=== PATIENT | male | born 1985 | race Two or more races ===

== ENCOUNTER 2024-05-18 06:51 | Emergency (ER) | payer BC, MEDICAID, SELFPAY ==
[2024-05-18 06:51] VITALS: BMI 23.0
[2024-05-18 07:12] VITALS: BP 134/78; PULSE 88; RESP 18; TEMP 36.4; O2SAT 99; BMI 25.2
--- NOTE | 2024-05-18 07:37 | EDNOTE_ITS ---
ED Ear RME/HPI General Chief complaint: Ear Stated complaint: ear pain Time Seen by Provider: 05/18/24 06:51 Arrival date/time: 05/18/24 06:51 This is a 38-year-old male with complaints of foreign body in left ear. Patient states has been hurting for the past week. Patient denies fever chills. Patient states that he did not put anything in his ear and he has no idea how foreign body got in his ear. Patient denies any trauma. He reports surgery to his right ear in the past. Patient also has complaints of redness to right upper back. Patient states it has been there for a couple days now. Patient states has been draining fluid. Limitations: no limitations Related Data Home Medications ?Medication ?Instructions ?Recorded ?Confirmed levetiracetam 500 mg tablet 500 mg PO QID 07/27/20 04/08/21 (Keppra) Previous Rx's ?Medication ?Instructions ?Recorded acetaminophen 500 mg capsule 1,000 mg (2 x 500 mg) PO Q8HR PRN 04/08/21 pain #60 caps ibuprofen 800 mg tablet 800 mg PO TID PRN pain #30 tabs 04/08/21 fexofenadine 180 mg tablet 180 mg PO Q24H #30 tabs 04/07/22 (Nasreen Allergy) hydrocodone 5 mg-acetaminophen 325 1 tab PO BID PRN pain #10 tabs 12/30/22 mg tablet ibuprofen 600 mg tablet 600 mg PO Q6H #30 tabs 12/30/22 acetaminophen 300 mg-codeine 30 mg 2 tab PO TID PRN pain #20 tabs 03/22/24 tablet amoxicillin 875 mg-potassium 1 tab PO BID #10 tabs 03/22/24 clavulanate 125 mg tablet ibuprofen 800 mg tablet 800 mg PO Q8H PRN pain #30 tabs 03/22/24 amoxicillin 875 mg-potassium 1 tab PO BID 7 days #14 tabs 05/18/24 clavulanate 125 mg tablet doxycycline hyclate 100 mg tablet 100 mg PO BID 7 days #14 tabs 05/18/24 ibuprofen 800 mg tablet 800 mg PO Q6H PRN pain #14 tabs 05/18/24 [id number] 3.3 4 drp otic (ear) QID #10 mL 05/18/24 mg-3 mg-10 mg-0.5 mg/mL ear drops,susp (Cortisporin-TC) Allergies Allergy/AdvReac Type Severity Reaction Status Date / Time No Known Allergies Allergy Verified 05/18/24 06:54 Review of Systems Review of Systems Systems Reviewed: All systems reviewed, normal except as documented Past Medical History Past Medical History NEUROLOGIC: Positive Neurological Disorders, Seizures and Multiple Sclerosis CARDIAC: Negative Congestive Heart Failure RESPIRATORY: Negative Chronic Obstructive Pulmonary Disease (COPD) GENITOURINARY: Negative Renal Disease ENDOCRINE: Negative Diabetes Mellitus Type 1 or Diabetes Mellitus Type 2 Surgical History SURGICAL: Positive Ear Surgery and Abdominal Surgery Social History SMOKING STATUS: Never smoker SUBSTANCE USE: does not use ED Exam General Limitations: Present no limitations General appearance: Present alert and in no apparent distress Head Head exam: Present atraumatic Eye Eye exam: Present normal appearance, PERRL and EOMI ENT ENT exam: Present normal oropharynx, mucous membranes moist and other (left ear canal erythemic with drainage after black foreign body removed) Neck Neck exam: Present normal inspection, full ROM and trachea midline Chest Chest inspection: Present normal inspection and symmetric chest wall rise Respiratory Respiratory exam: Present normal lung sounds bilaterally Cardiovascular Cardiovascular exam: Present regular rate, normal rhythm and normal heart sounds Abdominal Exam Abdominal exam: Present soft and normal bowel sounds Extremities Exam Extremities exam: Present normal inspection and full ROM Back Exam Back exam: Present normal inspection and full ROM Neurological Exam Neurological exam: Present alert, oriented X3 and CN II-XII intact Psychiatric Psychiatric exam: Present normal affect and normal mood Skin Skin exam: Present warm, dry, intact and normal color Course Quality Measures none Orders Category Date Time Status Miscellaneous Nursing Order X1 Care 05/18/24 07:35 Completed Ibuprofen Tab [Motrin Tab] Med 05/18/24 07:35 Discontinued 800 mg PO X1 ONE Lidocaine 2% Viscous [Xylocaine 2% Viscous] Med 05/18/24 07:35 Discontinued 15 ml PO X1 ONE cefTRIAXone [Rocephin] 1,000 mg Med 05/18/24 07:36 Discontinued Lidocaine 1% 20 ml [Xylocaine 1% 20 ML] 2.1 ml IM X1 Vital Signs Vital signs: Vital Signs Temperature 97.6 F 05/18/24 07:12 Pulse Rate 88 05/18/24 07:12 Respiratory Rate 18 05/18/24 07:12 Blood Pressure 134/78 H 05/18/24 07:12 Pulse Oximetry (%) 99 05/18/24 07:12 Oxygen Delivery Method Room Air 05/18/24 07:12 Ear Patient data External records reviewed:: [facility] previous records Clinical information provided by:: patient Social determinants that could affect healthcare access:: none Patient has the following chronic illnesses:: none How is presenting disease/condition affected by chronic disease/condition?: no chronic disease Evaluation data The following diagnostics were reviewed and interpreted by me:: other (specify) (none ) Lab and/or radiology exams considered but not ordered:: none Interpretation Summary: none Medications / Prescriptions Medications or Prescriptions considered but not ordered:: none Medication administrations:: Medication Administration History Discontinued Medications Ceftriaxone Sodium 1,000 mg/ (Lidocaine HCl 2.1 ml) 0 mg IM X1 ONE Stop: 05/18/24 07:37 Last Admin: 05/18/24 08:17 Dose: 2.1 mg Documented By: ARF Ibuprofen (Ibuprofen Tab 400 Mg Tablet) 800 mg PO X1 ONE Stop: 05/18/24 07:36 Last Admin: 05/18/24 08:17 Dose: 800 mg Documented By: ARF Lidocaine HCl (Lidocaine Viscous 2% 15 Ml Udc) 15 ml PO X1 ONE Stop: 05/18/24 07:36 Last Admin: 05/18/24 08:17 Dose: 15 ml Documented By: ARF see mar Consultations Consultation(s) initiated? (list below): No Diagnosis Most likely diagnosis given after review of the tests above:: foreign body left ear removed Admission Indicated Admission indicated?: not indicated Admission Request Was there a request for admission?: No Disposition Plan Disposition Plan: Discharge Discharge Attestation Discharge Attestation: The patient and all family members were given an opportunity to ask questions and understood the discharge instructions. Discharge instructions specifically effects, indications for sooner follow up or return to the emergency department, and the expected course of current diagnosis. Patient condition: Stable Medical Decision Making MDM Narrative MDM Narrative: This is a 38-year-old male with complaints of foreign body in left ear. Patient states has been hurting for the past week. Patient denies fever chills. Patient states that he did not put anything in his ear and he has no idea how foreign body got in his ear. Patient denies any trauma. He reports surgery to his right ear in the past. Patient also has complaints of redness to right upper back. Patient states it has been there for a couple days now. Patient states has been draining fluid. After flushing ear with warm hydrogen peroxide and saline. I was able to reach foreign body and remove. It appears to be an ear phone piece. Pt told to keep ears clean and use ear drops. Discharge Plan Plan Patient Disposition: HOME (Self Care) Patient condition on transfer: Stable Prescriptions/Referrals Prescriptions/Med Rec: New ibuprofen 800 mg tablet 800 mg PO Q6H PRN (Reason: pain) Qty: 14 0RF doxycycline hyclate 100 mg tablet 100 mg PO BID 7 Days Qty: 14 0RF amoxicillin-pot clavulanate 875-125 mg tablet 1 tab PO BID 7 Days Qty: 14 0RF Cortisporin-TC 3.3-3-10-0.5 mg/mL drops,suspension 4 drp otic (ear) QID Qty: 10 0RF No Action levetiracetam [Keppra] 500 mg Tablet 500 mg PO QID ibuprofen 800 mg tablet 800 mg PO TID PRN (Reason: pain) Qty: 30 0RF acetaminophen 500 mg capsule 1,000 mg PO Q8HR PRN (Reason: pain) Qty: 60 0RF ibuprofen 600 mg tablet 600 mg PO Q6H Qty: 30 0RF hydrocodone-acetaminophen 5-325 mg tablet 1 tab PO BID MDD 10 PRN (Reason: pain) Qty: 10 0RF acetaminophen-codeine 300-30 mg tablet 2 tab PO TID MDD 6 PRN (Reason: pain) Qty: 20 0RF ibuprofen 800 mg tablet 800 mg PO Q8H PRN (Reason: pain) Qty: 30 0RF amoxicillin-pot clavulanate 875-125 mg tablet 1 tab PO BID Qty: 10 0RF fexofenadine [Nasreen Allergy] 180 mg tablet 180 mg PO Q24H Qty: 30 0RF Problem List Clinical Impression: Cellulitis, Abscess, Acute foreign body of left ear Patient/Caregiver Discharge Instructions Discharge Activity: activity as tolerated Education Materials: ED Abscess Antibiotic ..., ED Cellulitis, ED EAR CANAL Foreign Body Additional Instructions: Patient will need to follow-up with an ear nose and and throat doctor. please take antibiotics as prescribed. May use warm compresses to abscess to right upper back every 4 hours. Can take ibuprofen for pain. Come back to the emergency room if symptoms change or worsen. Keep scheduled appointment with primary provider. Print Language: Sammarinese Stand Alone Forms: Camilla Award Info., Patient Portal Info Letter PA/GEAR SHAVER SET UP OPERATOR Supervising Physician PA/GEAR SHAVER SET UP OPERATOR Supervising Physician: dashawn
[2024-05-18] MEDS: IBUPROFEN TAB 400 MG TABLET 800 MG PO (08:17)
[2024-05-18] MEDS: LIDOCAINE VISCOUS 2% 15 ML UDC PO (08:17)
[2024-05-18] MEDS: cefTRIAXone 1,000 MG, LIDOCAINE 1% 20 ML 2.1 ML IM (08:17)
== END 2024-05-18 09:02 | disposition home or self-care (01) ==
LOC: SERX 07:49
PROVIDERS: Emergency Provider Emergency Medicine; PCP Physician Assistant
DX: T16.2XXA Foreign body in left ear, initial encounter (principal); L02.212 Cutaneous abscess of back [any part, except buttock and flank]; L03.312 Cellulitis of back [any part except buttock and flank]; W44.9XXA Unspecified foreign body entering into or through a natural orifice, initial encounter
CPT/HCPCS: 96372; 99283; J0696; J3490; A9270

== ENCOUNTER → 2024-05-24 | Outpatient (CLI) | payer OTHER, MEDICAID, SELFPAY ==
--- NOTE | 2024-05-24 11:04 | XR_ITS ---
Examination: Bilateral hands, 6 views. Technique: AP, Oblique, Lateral each hand total 6 views Date and time of exam: May 24, 2024 1108 hours Comparison April 10, 2024 INDICATIONS: Pain and stiffness in the hand beginning March 2024 FINDINGS: Partial healing fractures left fourth and fifth digits proximal phalanges Stable and satisfactory alignment Old fracture base fifth metacarpal right hand No acute fractures No opaque foreign bodies IMPRESSION: Subacute partial healing fractures proximal phalanges left fourth and fifth digits with satisfactory alignment
== END | disposition home or self-care (01) ==
PROVIDERS: PCP Physician Assistant; Referring Provider Orthopaedic Surgery; Visit Provider Orthopaedic Surgery
DX: S62.615A Displaced fracture of proximal phalanx of left ring finger, initial encounter for closed fracture (principal); S62.617A Displaced fracture of proximal phalanx of left little finger, initial encounter for closed fracture; X58.XXXA Exposure to other specified factors, initial encounter
CPT/HCPCS: 73130

== ENCOUNTER 2024-07-11 13:58 | Inpatient (IN) | payer MEDICAID, SELFPAY ==
[2024-07-11] VITALS (12 sets, daily range): BP systolic 116–154; BP diastolic 72–99; PULSE 84–112; RESP 18–21; TEMP 37.1–38.7; O2SAT 90–100; BMI 25.1
--- NOTE | 2024-07-11 14:16 | XR_ITS ---
Examination: CT brain head without contrast. 2-D sagittal coronal reconstructions Date and time of exam:July 11, 2024 1600 hours INDICATIONS: Patient fell today with injury to the head, head pain CTDI: vol (mGy):55.9 DLP: (mGycm):1124 Technique: Multiple CT axial sections of the brain have been obtained, 5 mm slice thickness. Contrast has not been administered. 2-D sagittal, coronal reconstructions have been obtained Low dose protocols were performed. One or more of the following dose reduction techniques were used; automated exposure control, adjustment of the mA and/or KV according to patient size, use of iterative reconstruction technique. Findings: No significant ventricular enlargement. Intra-axial or extra-axial hemorrhage density is not seen. No mass effect or midline shift Basal cisterns are not remarkable. Fourth ventricle is midline. Cranial vault intact. Impression: Negative for acute hemorrhage, mass effect or midline shift
--- NOTE | 2024-07-11 14:18 | PC.NURSE ---
Pt. here from [employer], pt. was at work and stated he started to feel weird and walked to break room, pt. states then he woke up and didn't recognize anyone around him. Pt. has edema to right eyebrow and left cheek. Pt. states when he woke up the ambulance was there. Pt. states he had seizures when he was 14 and used to take Keppra. Pt. states he doesn't want to get fired.
--- NOTE | 2024-07-11 14:20 | XR_ITS ---
Examination: CT cervical spine without contrast 2-D sagittal reconstructions 2-D coronal reconstructions 3-D reconstructions. Exam date and time:July 11, 2024 1600 hours INDICATIONS: Patient fell today with injury to the neck, neck pain CTDI:vol (mGy) 13.6 DLP: (mGycm) 299 Technique: Multiple 2 mm axial sections of the cervical spine have been obtained. The coronal and sagittal reconstructions have been obtained. 3-D reconstructions have been obtained. Low dose protocols were performed. One or more of the following dose reduction techniques were used; automated exposure control, adjustment of the mA and/or KV according to patient size, use of iterative reconstruction technique. Findings: Axial sections demonstrate intact base of the skull. C1 exhibit satisfactory relationship to the odontoid. No acute cervical vertebral body fracture seen. Alignment posterior spinous processes satisfactory. Impression: No acute cervical fracture.
--- NOTE | 2024-07-11 14:20 | XR_ITS ---
Examination: CT maxillofacial, without intravenous contrast. 2-D sagittal reconstructions. 3-D reconstructions. Date and time of exam:July 11, 2024 1600 hours INDICATIONS: Patient fell today with injury to the face, facial pain CTDI: vol (mGy):17 DLP: (mGycm):301 Technique: Multiple axial images of maxillofacial region, 3.0 mm slice thickness. 2-D sagittal and coronal reconstructions. 3-D reconstructions. Low dose protocols were performed. One or more of the following dose reduction techniques were used; automated exposure control, adjustment of the mA and/or KV according to patient size, use of iterative reconstruction technique. Findings: Frontal bone frontal sinuses intact Orbital rims are intact No nasal bone fracture No depression zygomatic arches Pterygoid plates maxilla and the mandible intact IMPRESSION: No acute facial fracture.
--- NOTE | 2024-07-11 14:26 | PC.NURSE ---
Pt. states right now he feels lightheaded and dizzy.
--- NOTE | 2024-07-11 14:30 | PD.EDSYNC ---
ED Syncope RME/HPI General Chief Complaint: Syncope / Near Syncope Stated Complaint: POSSIBLE SEIZURE Time Seen by Provider: 07/11/24 14:11 Arrival date/time: 07/11/24 13:58 RME / HPI RME / HPI narrative: 38-year-old male patient with significant history of MS, was brought in by EMS for evaluation regarding witnessed tonic-clonic seizure. Patient told me that he was working and suddenly felt dizzy was helped by another coworker and was witnessed to have blank stares and was shaking. Patient fell forward. Sustained abrasions to the face. Denies any neck pain. Patient was seen by neurologist yesterday and will start MS medication tomorrow. Currently patient is alert and oriented x 2 Related Data Home Medications ?Medication ?Instructions ?Recorded ?Confirmed levetiracetam 500 mg tablet 500 mg PO QID 07/27/20 04/08/21 (Keppra) Previous Rx's ?Medication ?Instructions ?Recorded acetaminophen 500 mg capsule 1,000 mg (2 x 500 mg) PO Q8HR PRN 04/08/21 pain #60 caps ibuprofen 800 mg tablet 800 mg PO TID PRN pain #30 tabs 04/08/21 fexofenadine 180 mg tablet 180 mg PO Q24H #30 tabs 04/07/22 (Nasreen Allergy) hydrocodone 5 mg-acetaminophen 325 1 tab PO BID PRN pain #10 tabs 12/30/22 mg tablet ibuprofen 600 mg tablet 600 mg PO Q6H #30 tabs 12/30/22 acetaminophen 300 mg-codeine 30 mg 2 tab PO TID PRN pain #20 tabs 03/22/24 tablet amoxicillin 875 mg-potassium 1 tab PO BID #10 tabs 03/22/24 clavulanate 125 mg tablet ibuprofen 800 mg tablet 800 mg PO Q8H PRN pain #30 tabs 03/22/24 ibuprofen 800 mg tablet 800 mg PO Q6H PRN pain #14 tabs 05/18/24 [id number]-[id number] 3.3 4 drp otic (ear) QID #10 mL 05/18/24 mg-3 mg-10 mg-0.5 mg/mL ear drops,susp (Cortisporin-TC) Allergies Allergy/AdvReac Type Severity Reaction Status Date / Time No Known Allergies Allergy Verified 05/18/24 06:54 Review of Systems Review of Systems Narrative Review of Systems: Review of system reviewed and within normal limits except mentioned in HPI ED Exam Narrative Physical exam: VITAL SIGNS: Reviewed. GENERAL APPEARANCE: Alert and interactive, follows commands, no acute distress, HEAD AND FACE: Contusion noted on the forehead ENT: PERRL, pink conjunctivitis, eyelid no trauma, Mucous membrane moist. NECK: Supple, nontender, no nuchal rigidity. CHEST: No tenderness, no crepitus, no paradoxical movement, no retractions. LUNGS: Clear, well ventilated, symmetric, no rales, no wheezing, no ronchi, no stridor, good breath sounds bilaterally. HEART: Regular rate, regular rhythm, no murmur, no gallops. ABDOMEN: Soft, positive bowel sounds, nondistended, no guarding, nontender, no rebound, no masses, RECTAL: Deferred. GENITAL: Deferred. NEUROLOGICAL: Gross motor function intact sensory function intact, Appropriate for age. MUSCULOSKELETAL: low back nontender, full range of motion. EXTREMITIES: Nontender, full range of motion. SKIN: Color pink, dry, no rash, no lacerations, no abrasions, no contusions. LYMPHATICS: Deferred. Course Quality Measures none Orders Category Date Time Status COVID-19 Screening Questionnaire NOW Care 07/11/24 17:08 Active Decision to Admit X1 Care 07/11/24 17:08 Active Consult to Neurology / Tele-Neurology Stat Cons 07/11/24 17:[address] cervical spine wo con Stat Exams 07/11/24 14:[address] facial bones wo con Stat Exams 07/11/24 14:[address] head/brain wo con Stat Exams 07/11/24 14:16 Completed Alcohol, Blood Medical Stat Lab 07/11/24 14:59 Completed CBC [CBC] Stat Lab 07/11/24 14:59 Completed CMP [Comprehensive Metabolic Panel] Stat Lab 07/11/24 14:59 Completed Drug Screen,Urine Stat Lab 07/11/24 14:38 Completed Lactate (Lactic Acid) Stat Lab 07/11/24 14:59 Completed LORazepam [Ativan Inj] Med 07/11/24 16:58 Discontinued 2 mg .ROUTE .STK-MED ONE LORazepam [Ativan Inj] Med 07/11/24 17:02 Discontinued 2 mg IVP X1 ONE Sodium Chloride 0.9% 1000 ml [Ns] 1,000 ml Med 07/11/24 14:18 Discontinued IV 999 mls/hr levETIRAcetam INJ [Keppra Inj] Med 07/11/24 17:02 Discontinued 1,000 mg IVP X1 ONE Vital Signs Vital signs: Vital Signs Temperature 99.7 F 07/11/24 14:01 Pulse Rate 105 H 07/11/24 14:01 Respiratory Rate 18 07/11/24 14:01 Blood Pressure 154/99 H 07/11/24 14:01 Pulse Oximetry (%) 96 07/11/24 14:01 Syncope MDM Narrative MDM Narrative:: 38-year-old male patient with significant history of MS, was brought in by EMS for evaluation regarding witnessed tonic-clonic seizure. Patient told me that he was working and suddenly felt dizzy was helped by another coworker and was witnessed to have blank stares and was shaking. Patient fell forward. Sustained abrasions to the face. Denies any neck pain. Patient was seen by neurologist yesterday and will start MS medication tomorrow. Currently patient is alert and oriented x 2 After patient was initially evaluated, I spoke with Dr. Flowers, patient's urologist, discussed the case, told me to workup the patient and hold off on Keppra IV 5 PM, patient developed witnessed tonic-clonic seizure lasting for 1 to 2 minutes. Patient bit his tongue. And have incontinence of urine Patient was given Ativan IV and Keppra IV Spoke with Dr. Gunderson again and told me to admit the patient for further management. Spoke with hospitalist who admitted the patient. Patient data External records reviewed:: None Clinical information provided by:: patient Social determinants that could affect healthcare access:: none Patient has the following chronic illnesses:: History of seizure, history of MS How is presenting disease/condition affected by chronic disease/condition?: exacerbated by Evaluation data The following diagnostics were reviewed and interpreted by me:: lab results, radiology exam(s) and EKG tracing(s) Lab and/or radiology exams considered but not ordered:: None Interpretation Summary: EKG shows sinus rhythm, ventricular rate of 99 bpm, no ST segment elevation or depression noted. CT scan of the head came back unremarkable CT scan of the face came back unremarkable CT scan of the neck came back unremarkable. Laboratory couple came back normal. Medications / Prescriptions Medications or Prescriptions considered but not ordered:: None Medication administrations:: Medication Administration History Discontinued Medications Sodium Chloride (Ns) 1,000 mls @ 999 mls/hr IV .Q1H1M ONE Stop: 07/11/24 15:18 Last Infusion: 07/11/24 16:15 Dose: Infused Documented By: Admin: 07/11/24 14:46 Dose: 999 mls/hr Documented By: ED Levetiracetam (Levetiracetam Inj 100 Mg/Ml Vial 5ml) 1,000 mg IVP X1 ONE Stop: 07/11/24 17:03 Lorazepam (Lorazepam 2 Mg/Ml Vial) 2 mg IVP X1 ONE Stop: 07/11/24 17:03 Lorazepam (Lorazepam 2 Mg/Ml Vial) Confirm Administered Dose 2 mg .ROUTE .STK-MED ONE Stop: 07/11/24 16:59 Ativan IV IV fluids for hydration, and Keppra IV Consultations Consultation(s) initiated? (list below): Yes Consultation #1 (Physician, Specialty, Details): Dr Flowers, neurologist thank you DrWandy Diagnosis Syncope Differential Diagnosis: syncope due to orthostatic hypotension, subarachnoid hemorrhage and other (Breakthrough seizure) Most likely diagnosis given after review of the tests above:: Recurrent seizure, history of MS Admission Indicated Admission indicated?: indicated Explain why admission is indicated or not indicated:: For further management Admission Request Was there a request for admission?: Yes Admission Attestation Admission request attestation: Discussed case with [Dr Matias] from Hospitalist service regarding admission. Discussed patients ED course, exam findings, labs, and radiology results. The Hospitalist [agrees] to accept the patient for admission. Disposition Plan Disposition Plan: Admit Discharge Plan Plan Patient Disposition: Admit Acute Care w/in Hospital Prescriptions/Referrals Prescriptions/Med Rec: No Action levetiracetam [Keppra] 500 mg Tablet 500 mg PO QID ibuprofen 800 mg tablet 800 mg PO TID PRN (Reason: pain) Qty: 30 0RF acetaminophen 500 mg capsule 1,000 mg PO Q8HR PRN (Reason: pain) Qty: 60 0RF ibuprofen 600 mg tablet 600 mg PO Q6H Qty: 30 0RF hydrocodone-acetaminophen 5-325 mg tablet 1 tab PO BID MDD 10 PRN (Reason: pain) Qty: 10 0RF acetaminophen-codeine 300-30 mg tablet 2 tab PO TID MDD 6 PRN (Reason: pain) Qty: 20 0RF ibuprofen 800 mg tablet 800 mg PO Q8H PRN (Reason: pain) Qty: 30 0RF amoxicillin-pot clavulanate 875-125 mg tablet 1 tab PO BID Qty: 10 0RF ibuprofen 800 mg tablet 800 mg PO Q6H PRN (Reason: pain) Qty: 14 0RF Cortisporin-TC 3.3-3-10-0.5 mg/mL drops,suspension 4 drp otic (ear) QID Qty: 10 0RF fexofenadine [Nasreen Allergy] 180 mg tablet 180 mg PO Q24H Qty: 30 0RF Problem List Clinical Impression: Recurrent seizures Patient/Caregiver Discharge Instructions Print Language: Indonesian Stand Alone Forms: Camilla Award Info., Patient Portal Info Letter
[2024-07-11] MEDS: SODIUM CHLORIDE 0.9% 1000 ML 1,000 ML 999 ML IV (14:46)
[2024-07-11 15:09] LABS: Lactate (Lactic Acid) 1.2 mMol/L (0.4-2.0)
[2024-07-11 15:11] LABS: Basophils % (Auto) 0 % (0-2.5); Eosinophils % (Auto) 1 % (0-10); Hematocrit 42.7 % (41.0-53.0); Hemoglobin 13.9 g/dL (13.5-16.0); Immature Granulocytes % (Auto) 1 % (0-0); Immature Granulocytes Auto 0.03 Thou/mm3 (0.00-0.00); Lymphocytes # (Auto) 0.5 Thou/mm3 (1.0-4.8); Lymphocytes % (Auto) 15 % (10-50); Mean Corpuscular HGB Conc 32.6 g/dl (31.0-37.0); Mean Corpuscular Hemoglobin 28.8 pg (25.0-35.0); Mean Corpuscular Volume 88 fL (80-100); Monocytes # (Auto) 0.3 Thou/mm3 (0.0-0.8); Monocytes % (Auto) 9 % (0-12); Neutrophils # (Auto) 2.7 Thou/mm3 (1.8-7.7); Neutrophils % (Auto) 75 % (37-80); Nucleated Red Blood Cell % 0 /100 WBC (0); Platelet Count 181 Thou/mm3 (140-440); RDW Standard Deviation 43.8 fL (35.1-43.9); Red Blood Count 4.83 Miln/mm3 (4.50-5.90); White Blood Count 3.7 Thou/mm3 (3.8-10.6)
[2024-07-11 15:21] LABS: Amphetamine/Methamp Scrn,U Negative (Negative); Barbiturate Screen,Urine Negative (Negative); Benzodiazepines Screen,Urine Negative (Negative); Benzoylecgonine Screen, Ur Negative (Negative); Fentanyl Screen,Urine Negative (Negative); Opiate Screen,Urine Negative (Negative); THC Screen,Urine Negative (Negative)
[2024-07-11 15:29] LABS: Alanine Aminotransferase 173 U/L (10-49); Albumin, Serum 4.5 gm/dL (3.5-5.0); Albumin/Globulin Ratio 1.9 (1.2-2.2); Alcohol, Blood Medical < 10.0 mg/dL (0-10.0); Alkaline Phosphatase 71 U/L (46-116); Anion Gap 9 (7-16); Aspartate Amino Transferase 128 U/L (0-34); BUN/Creatinine Ratio 17 Ratio (12-20); Bilirubin,Total 0.3 mg/dL (0.3-1.2); Blood Urea Nitrogen 12 mg/dL (9-23); Calcium 8.9 mg/dL (8.3-10.6); Calcium (Corrected) 8.9 mg/dL (8.5-10.1); Carbon Dioxide 25.3 mMol/L (20.0-31.0); Chloride 110 mMol/L (98-107); Creatinine (Component) 0.7 mg/dL (0.6-1.3); Estimated Creatinine Clearance 150.9 mL/min (>60); Globulin 2.4 gm/dL (2.3-3.5); Glucose 131 mg/dL (74-106); Osmolality,Calculated 288 (275-295); Potassium 3.9 mMol/L (3.4-5.1); Sodium 144 mMol/L (136-145); Total Protein 6.9 gm/dL (5.7-8.2); eGFR > 60 See Note
[2024-07-11] MEDS: LORazepam 2 MG/ML VIAL IVP (17:01)
--- NOTE | 2024-07-11 17:02 | PC.NURSE ---
Pt. had a seizure lasting about 30 seconds, pt. on right side with his hands clenched tight, pt. also urinated himself. Pt. bit his tongue and min. bleeding noted from tongue. Karoline ADAMEgray mixing operator, Jia ADAME and Dioni ADAME all bedside.
[2024-07-11] MEDS: levETIRAcetam INJ 100 MG/ML VIAL 5ML 1000 MG IVP (17:08)
--- NOTE | 2024-07-11 18:02 | ESHP_ITS ---
Documentation for date of: 07/11/24 HPI History of Present Illness Chief complaint: Seizures History of present illness: Patient is poor historian history taken from nurse and EMS report. 38-year-old male with past medical history of seizures since the age of 14 supposed take Keppra however noncompliant, history of multiple sclerosis presented to the ED due to seizures. Apparently patient works at [employer] was not feeling okay went to the bathroom to wash his face and woke up in the ambulance. Patient is apparently a heavy drinker when asked he says he usually drinks 1-3 sixpacks. Patient apparently had 2 witnessed seizures with urinary incontinence. Patient was supposed to start multiple sclerosis medications however not able to. ED course: Vitals on arrival significant for hypertension BP 154/99, heart rate 105, significant for WBC 3.7, glucose 131, AST 128, ALT [address] U-Tox [address] was negative for acute hemorrhage, midline shift, mass effect. Cervical spine CT was negative for any acute fracture. CT negative for acute facial fracture. PMHx: Multiple sclerosis, seizures SX Hx: Unknown Social Hx: Admits alcohol use FHX: Unknown Review of Systems Review of Systems ROS Unobtainable: unobtainable due to mental status and unobtainable due to medical condition Exam Vital Signs Temp Pulse Resp BP Pulse Ox 99.7 F 105 H 18 154/99 H 96 07/11/24 14:01 07/11/24 14:01 07/11/24 14:01 07/11/24 14:01 07/11/24 14:01 Narrative Exam Physical Exam GENERAL: NAD HEENT: Moist mucosa. Eyes open, swollen left side of the face CARDIO: Heart RRR, no obvious murmurs PULM: No noted coughing/dyspnea CTA B/L, no R/W/R GI: Abdomen soft, nondistended, no pain on palpation. BSx4 SKIN/MSK/EXT: No wounds/rashes/edema/amputations, no pain on palpation. Pedal pulses present B/L Results: Labs 07/12/24 04:20 07/12/24 04:20 Labs: Short CBC 07/11/24 Range/Units 14:59 WBC 3.7 L (3.8-10.6) Thou/mm3 Hgb 13.9 (13.5-16.0) g/dL Hct 42.7 (41.0-53.0) % Plt Count 181 (140-440) Thou/mm3 BMP 07/11/24 14:59 Sodium 144 Potassium 3.9 Chloride 110 H Carbon Dioxide 25.3 BUN 12 Creatinine 0.7 Glucose 131 H Calcium 8.9 Liver Function 07/11/24 Range/Units 14:59 Total Bilirubin 0.3 (0.3-1.2) mg/dL AST 128 H (0-34) U/L ALT 173 H (10-49) U/L Alkaline Phosphatase 71 (46-116) U/L Albumin 4.5 (3.5-5.0) gm/dL Quality Measures Quality Measures none Medications Home Medications and Allergies Home Medications ?Medication ?Instructions ?Recorded ?Confirmed ?Type levetiracetam 500 mg tablet 500 mg PO QID 07/27/20 History (Keppra) Allergies Allergy/AdvReac Type Severity Reaction Status Date / Time No Known Allergies Allergy Verified 05/18/24 06:54 Visit Medications Acetaminophen (Acetaminophen 325 Mg Tablet) 650 mg PO Q6H PRN PRN Reason: Fever >100.5 Stop: 08/10/24 17:56 Heparin Sodium (Porcine) (Heparin Sod Inj 5000 Unit/Ml Vial) 5,000 unit SC Q8HR CATHY Stop: 07/26/24 05:59 Discontinued Medications Sodium Chloride (Ns) 1,000 mls @ 999 mls/hr IV .Q1H1M ONE Stop: 07/11/24 15:18 Last Infusion: 07/11/24 16:15 Dose: Infused Levetiracetam (Levetiracetam Inj 100 Mg/Ml Vial 5ml) 1,000 mg IVP X1 ONE Stop: 07/11/24 17:03 Last Admin: 07/11/24 17:08 Dose: 1,000 mg Lorazepam (Lorazepam 2 Mg/Ml Vial) 2 mg IVP X1 ONE Stop: 07/11/24 17:03 Last Admin: 07/11/24 17:01 Dose: 2 mg Assessment & Plan Plan 38-year-old male with past medical history of seizures since the age of 14 supposed take Keppra however noncompliant, history of multiple sclerosis presented to the ED due to seizures. Apparently patient works at [employer] was not feeling okay went to the bathroom to wash his face and woke up in the ambulance. Patient is apparently a heavy drinker when asked he says he usually drinks 1-3 sixpacks. Patient apparently had 2 witnessed seizures with urinary incontinence. Patient was supposed to start multiple sclerosis medications however not able to. #History of seizures Patient apparently has history of seizures since age of 14 possible to take Keppra however is not compliant Patient had 2 witnessed seizures with urinary incontinence Patient sees Dr. Flowers ? Keppra 500 mg IV twice daily ? EEG ordered ? MRI brain with without contrast ? MRI C-spine with without contrast ? Neurology Dr Flowers consulted, appreciate recommendation ? Lorazepam 2 mg as needed for breakthrough seizures #Alcohol use disorder Patient admits drinking 1-3 sixpacks of beer Patient is shaking in the ED ? Librium 50 mg p.o. 3 times daily ? On CIWA protocol ? IV thiamine and folate #History of multiple sclerosis Patient sees Dr. Flowers in the office. Was discharged on multiple sclerosis medication however was not able to ? Neurology consulted appreciate Case discussed with my senior Dr. Matias PGY-[address] Henny Hernandez MD PGY-1 Disposition: Telemetry Fluids: None Feeding: N.p.o. till swallow screen is passed Thrombo prophylaxis: Heparin Gastric Ulcer prophylaxis: None CODE STATUS: Full code Senior resident attestation: The pateint is a 38y/o male who was recently diagnosed with MS at neurologist office, not on any treatment yet, hx of seizures, and non compliance with antiseizure medications, hx of alcohol abuse diorder who presented to ER folllowing witnessed seizure and had another episode in the ER while getting CT. Received ativan and loaded with Keppra, at the time of evaluation was hallucinating and anxious, likely going through alchohol withdrawl, started on CIWA protocol, Neurology consulted and Brain imaging ordered. #Acute encephalopathy #Concern for encephalitis - acute onset altered mental status and fever, concerning for viral encephalitis , spoke to dr Mcintosh , who agreed with emperic treatment for encephalitis and getting a Lumbar puncture. Ordered CXR, urine cultures , blood cultures, Lumbar puncture, started on acyclovir, zosyn and vancomycin, will de-escalate antibiotics pending CSF studies. #Alcohol withdrawl - on CIWA protocol and scheduled librium, ICU was made aware that pt is requiring more frequent, benzodiazepine doses, may require intensive care. Patient evaluated and examined at the bedside, plan of care discussed with rest of the team including my attending physician, except as noted. Florencio PGY2 Attending Provider Attestation/Addendum Cecily Oliver DO, attest that I was physically present for the kathleen portions of the service and evaluated the patient with the resident and I reviewed and discussed the case with the resident and agree with the resident's findings and plans of care as documented above Patient is a 38-year-old male with past medical history of seizures and MS who was brought in by ambulance to the ED after having a seizure at work. Patient states that he was at [employer] at work when he lost consciousness and had had a seizure. Patient states that he takes Keppra at home, but is noncompliant. He drinks a sixpack of beer at least every day. His case was discussed with neurologist who had recently seen patient in the office yesterday. Patient is confused at this time and is noted to have some swelling over his right eyebrow and left cheek due to seizure. Patient had been prescribed Tecfidera outpatient for MS, but had not been able to obtain the medication from specialty pharmacy. Patient received loading dose of Keppra in ED, will continue with Keppra [address] patient on seizure precautions and admit patient to telemetry for further workup and medical management of recurrent seizure. Patient had a second witnessed seizure in the ED. Will order MRI of brain and cervical spine to further assess any progression of his multiple sclerosis. Patient is very disheveled, confused with malodor and tremulous at time of evaluation. He denies any visual, auditory or tactile hallucinations. However, patient is very agitated with a CIWA score of 18. Will give 2 mg of Ativan at this time and start patient on CIWA protocol. Suspect seizure secondary to medication noncompliance versus alcohol withdrawal seizures.
[2024-07-11] MEDS: LORazepam 2 MG/ML VIAL 1 MG IV (18:30)
[2024-07-11] MEDS: THIAMINE INJ 100 MG/ML VIAL 2 ML IM (18:32)
--- NOTE | 2024-07-11 18:34 | PC.NURSE ---
Pt. shaking and restless, states he drank 2 or 3 tall cans this morning before work, pt. naked, removed brief and gown.
[2024-07-11] MEDS: THIAMINE 100 MG TABLET PO (20:36)
[2024-07-11] MEDS: FOLIC ACID 1 MG TABLET PO (20:36)
[2024-07-11] MEDS: chlordiazePOXIDE HCl 25 MG CAPSULE 50 MG PO (21:36)
[2024-07-11] MEDS: ACETAMINOPHEN 325 MG TABLET 650 MG PO (22:39)
--- NOTE | 2024-07-11 22:40 | PC.NURSE ---
Spoke to resident about pt temp. received order for UA, no other new orders. pt o2, 92 on 2L NC. Resident aware
[2024-07-11 22:47] LABS: Collection Type, Urine Clean Catch; Squamous Epithelial Cell,Urine 0 /hpf (0-5)
[2024-07-11 22:53] LABS: Bilirubin,Urine Negative (Negative); Blood,Urine Negative (Negative); Clarity,Urine Clear (Clear/Hazy); Color,Urine Lt-Yellow (Lt Yel-Yel); Culture Indicated,Urine Not Indicated; Glucose, Urine Trace (Negative); Ketones,Urine Negative (Negative); Leukocyte Esterase,Urine Negative (Negative); Nitrite,Urine Negative (Negative); PH,Urine 7.5 (5.0-7.0); Protein,Urine Trace (Neg - Trace); RBC,Urine 2 /hpf (0-3); Specific Gravity,Urine 1.018 (1.001-1.035); Urobilinogen,Urine Negative mg/dL (0.0-1.0); WBC,Urine 1 /hpf (0-5)
--- NOTE | 2024-07-11 23:41 | PD.VCONSULT1 ---
Telemedicine visit statement This visit was conducted with the use of interactive audio and video telecommunications system that permits real time communication between the patient and the provider. Patient's verbal consent for virtual visit was obtained on 07/11/24 at 2341. TeleMedicine ROS Pertinent Review of Systems ROS Unobtainable: unobtainable due to mental status Meds Home Medications and Allergies Home Medications ?Medication ?Instructions ?Recorded ?Confirmed ?Type levetiracetam 500 mg tablet 500 mg PO QID 07/27/20 04/08/21 History (Meghan) Allergies Allergy/AdvReac Type Severity Reaction Status Date / Time No Known Allergies Allergy Verified 05/18/24 06:54 Virtual exam Vital Signs Temp Pulse Resp BP Pulse Ox O2 Del Method O2 Flow Rate 101.7 F H 100 21 H 116/82 92 L Nasal Cannula 2 07/11/24 22:39 07/11/24 23:00 07/11/24 23:00 07/11/24 23:00 07/11/24 23:00 07/11/24 23:00 07/11/24 23:00 Results Labs 07/12/24 04:20 07/12/24 04:20 Labs: Short CBC 07/11/24 Range/Units 14:59 WBC 3.7 L (3.8-10.6) Thou/mm3 Hgb 13.9 (13.5-16.0) g/dL Hct 42.7 (41.0-53.0) % Plt Count 181 (140-440) Thou/mm3 BMP 07/11/24 14:59 Sodium 144 Potassium 3.9 Chloride 110 H Carbon Dioxide 25.3 BUN 12 Creatinine 0.7 Glucose 131 H Calcium 8.9 Liver Function 07/11/24 Range/Units 14:59 Total Bilirubin 0.3 (0.3-1.2) mg/dL AST 128 H (0-34) U/L ALT 173 H (10-49) U/L Alkaline Phosphatase 71 (46-116) U/L Albumin 4.5 (3.5-5.0) gm/dL Urine 07/11/24 Range/Units 22:44 Urine Color Lt-Yellow (Lt Yel-Yel) Urine Clarity Clear (Clear/Hazy) Urine pH 7.5 H (5.0-7.0) Ur Specific Warren 1.018 (1.001-1.035) Urine Protein Trace (Neg - Trace) Urine Glucose (UA) Trace (Negative) Assessment & Plan Problem List (1) Recurrent seizures: Status: Acute Assessment and plan: Continue with the Keppra, follow-up with the MRI brain with and without contrast and EEG. Seizure precautions and Ativan as needed (2) Multiple sclerosis: Status: Chronic Assessment and plan: Will get his disease modification treatment started as he has been noncompliant with Tecfidera as an outpatient. Follow-up with MRI brain with and without contrast and C-spine. Continue with vitamin D daily
[2024-07-12] VITALS (8 sets, daily range): BP systolic 114–148; BP diastolic 80–93; PULSE 72–94; RESP 12–18; TEMP 36.2–38.2; O2SAT 96–98; BMI 26.4
--- NOTE | 2024-07-12 | XR_ITS ---
Examination: MRI cervical spine, without intravenous contrast. MRI cervical spine , with intravenous contrast. Exam date and time: July 12, 2024 0824 hours Comparison July 23, 2018 INDICATIONS: Seizures at work yesterday, history seizures, diagnosis multiple sclerosis Technique: Multiple axial, sagittal and coronal images of the cervical spine have been obtained with the Siemens high-resolution 1.5 Sravanthi MRI scanner. Images obtained included T2 weighted fat suppressed sagittal sections, TR 3500, TE 46, T2 weighted coronal fat suppressed images, TR 3050, TE 84, T2-weighted transverse fat suppressed images, TR 30-60, TE 63, proton density transverse images, TR 4720, TE 46, and T1 weighted coronal images, TR 560, TE 13. Axial, sagittal and coronal images are obtained post intravenous injection 17 cc gadolinium. Findings: Adequate alignment cervical vertebral bodies on the lateral view Diffuse cervical disc desiccation Increased signal in the cervical cord on the precontrast images, noted on the prior study Postcontrast images are degraded by patient motion but no abnormal osseous epidural or cervical cord enhancement IMPRESSION: Stable increased signal in the cervical cord on the precontrast images, demyelinating disease pattern
--- NOTE | 2024-07-12 | XR_ITS ---
Examination: MRI of brain without intravenous contrast. MRI brain with intravenous contrast. Date and time of exam:July 12, 2024 0824 hours Comparison July 23, 2018 INDICATIONS: History multiple sclerosis with history seizures including 2 seizures at work yesterday Technique: Multiple axial and sagittal images of the brain to been obtained. Siemens high-resolution 1.52 Sravanthi short bore scanner utilized. Sagittal sections, T1 weighted images, TR 500, TE 14, are performed. Axial sections proton-density and T2-weighted images have been obtained. Inversion recovery axial images, TR 9260, TE 111, TR 2500. Diffusion weighted images, axial sections, TR 4800, TE 128, B value 1000. Axial sections, ADC map, TR 4800, TE 128. Axial and coronal images were also obtained post 17 cc gadolinium administered intravenously. Findings:: Enlargement of the sella turcica is not present. The optic chiasm and infundibular stalk are not remarkable. There is no localized enlargement of the medulla or naren. Fourth ventricle and cerebellar tonsils appear normal in position. No subacute area of hemorrhage density is seen. Fourth ventricle is midline. Mass in the cerebellopontine angle region is not evident. 7th and 8th nerve complexes exhibit symmetry Globes are symmetrical Orbital musculature including medial lateral rectus muscles do not exhibit abnormality Increased white matter signal is again noted Effacement of the cortical sulcal markings is not identified. Mass effect upon the ventricular system is not identified. Diffusion-weighted images demonstrate no focus of restricted diffusion Contrast images demonstrate no abnormal enhancement Impression: Prominent foci increased signal in the white matter again noted, demyelinating disease pattern
[2024-07-12 05:21] LABS: Basophils % (Auto) 0 % (0-2.5); Eosinophils % (Auto) 0 % (0-10); Hemoglobin 14.9 g/dL (13.5-16.0); Immature Granulocytes % (Auto) 0 % (0-0); Immature Granulocytes Auto 0.02 Thou/mm3 (0.00-0.00); Lymphocytes # (Auto) 1.1 Thou/mm3 (1.0-4.8); Lymphocytes % (Auto) 18 % (10-50); Mean Corpuscular HGB Conc 32.4 g/dl (31.0-37.0); Mean Corpuscular Hemoglobin 28.3 pg (25.0-35.0); Mean Corpuscular Volume 88 fL (80-100); Monocytes # (Auto) 0.7 Thou/mm3 (0.0-0.8); Monocytes % (Auto) 12 % (0-12); Neutrophils # (Auto) 4.3 Thou/mm3 (1.8-7.7); Neutrophils % (Auto) 70 % (37-80); Nucleated Red Blood Cell % 0 /100 WBC (0); Platelet Count 199 Thou/mm3 (140-440); RDW Standard Deviation 42.8 fL (35.1-43.9); Red Blood Count 5.26 Miln/mm3 (4.50-5.90); White Blood Count 6.2 Thou/mm3 (3.8-10.6)
[2024-07-12] MEDS: ACETAMINOPHEN 325 MG TABLET 650 MG PO (05:31)
[2024-07-12] MEDS: HEPARIN SOD INJ 5000 UNIT/ML VIAL SC (05:32)
[2024-07-12] MEDS: chlordiazePOXIDE HCl 25 MG CAPSULE 50 MG PO ×2 (05:32→13:58)
--- NOTE | 2024-07-12 05:45 | RESP.EEG ---
EEG has been completed and is ready for MD interpretation.
[2024-07-12 06:16] LABS: Alanine Aminotransferase 142 U/L (10-49); Albumin, Serum 4.5 gm/dL (3.5-5.0); Albumin/Globulin Ratio 1.6 (1.2-2.2); Alkaline Phosphatase 70 U/L (46-116); Anion Gap 10 (7-16); Aspartate Amino Transferase 86 U/L (0-34); BUN/Creatinine Ratio 16 Ratio (12-20); Bilirubin,Total 1.1 mg/dL (0.3-1.2); Blood Urea Nitrogen 11 mg/dL (9-23); Calcium 9.6 mg/dL (8.3-10.6); Calcium (Corrected) 9.6 mg/dL (8.5-10.1); Carbon Dioxide 24.2 mMol/L (20.0-31.0); Chloride 103 mMol/L (98-107); Creatinine (Component) 0.7 mg/dL (0.6-1.3); Estimated Creatinine Clearance 150.9 mL/min (>60); Globulin 2.8 gm/dL (2.3-3.5); Glucose 101 mg/dL (74-106); Osmolality,Calculated 273 (275-295); Phosphorous 4.2 mg/dL (2.4-5.1); Potassium 3.5 mMol/L (3.4-5.1); Sodium 137 mMol/L (136-145); Total Protein 7.3 gm/dL (5.7-8.2); eGFR > 60 See Note
--- NOTE | 2024-07-12 07:58 | XR_ITS ---
Examination: PA chest single view TECHNIQUE: Upright PA chest single view Exam date and time: July 12, 2024 0942 hours Comparison December 14, 2022 INDICATIONS: Coughing congestion this week. FINDINGS: Normal heart size No lobar pneumonia The osseous structures are intact IMPRESSION: No lobar pneumonia or pulmonary edema
[2024-07-12] MEDS: PIPER/TAZO INJ 4.5 GM in SODIUM CHLORIDE 0.9% (P) 100 ML IV ×2 (10:15→13:57)
[2024-07-12] MEDS: ACYCLOVIR INJ 700 MG in SODIUM CHLORIDE 0.9% 100 ML 100 MG IV ×2 (10:16→13:58)
[2024-07-12] MEDS: VANCOMYCIN/WATER 1250 MG IVPB 250 ML 120 MG IV (10:16)
[2024-07-12] MEDS: DOCUSATE SOD 100 MG CAPSULE PO (10:17)
[2024-07-12] MEDS: THIAMINE 100 MG TABLET PO (10:17)
[2024-07-12] MEDS: FOLIC ACID 1 MG TABLET PO (10:18)
[2024-07-12 10:54] LABS: Ammonia 16 uMol/L (11-32)
[2024-07-12 11:11] LABS: HIV (1&2) Antibody Rapid Non-Reactive
--- NOTE | 2024-07-12 12:06 | PC.SS ---
Follow up note; MRI pending, EEG pending, and pt possibly will require a lumbar puncture.
--- NOTE | 2024-07-12 14:35 | ESPR_ITS ---
Documentation for date of: 07/12/24 Senior resident attestation: The pateint is a 38y/o male who was recently diagnosed with MS at neurologist office, not on any treatment yet, hx of seizures, and non compliance with antiseizure medications, hx of alcohol abuse diorder who presented to ER folllowing witnessed seizure and had another episode in the ER while getting CT. Received ativan and loaded with Keppra, at the time of evaluation was hallucinating and anxious, likely going through alchohol withdrawl, started on CIWA protocol, Neurology consulted and Brain imaging ordered. #Acute encephalopathy #Seizure disorder #Concern for encephalitis vs MS flare- acute onset altered mental status and fever, concerning for viral encephalitis , spoke to dr Mcintosh , who agreed with emperic treatment for encephalitis and getting a Lumbar puncture. Ordered CXR, urine cultures , blood cultures, Lumbar puncture, started on acyclovir, zosyn and vancomycin, will de-escalate antibiotics pending CSF studies. -Pt recently diagnosed with Multiple scleorsism Brain MRI negative for typical temporal lobe enchancement characteristic of virale ncephalitis, possible acute MS flare up, Pt's conscious level at baseline, will cancel lumbar puncture and acyclovir at this point, continue antibiotics, pt is threatning to leave AMA, counselled regarding importance of staying. #Alcohol withdrawl - on CIWA protocol and scheduled librium, ICU was made aware that pt is requiring more frequent, benzodiazepine doses, may require intensive care. Patient evaluated and examined at the bedside, plan of care discussed with rest of the team including my attending physician, except as noted. Quresh PGY2 Subjective Subjective Interval history: Patient seen today at the bedside. This a.m. patient was febrile in the setting of multiple seizures there is concern for encephalitis. Spoke to neurology Dr Flowers recommended starting the patient on empiric treatment for encephalitis. Patient was started on vancomycin, Zosyn and acyclovir. Lumbar puncture was ordered. Blood cultures were ordered, urine cultures were ordered. Cervical spine MRI was done and showed table increased signal in the cervical cord on the precontrast images, demyelinating disease pattern. EEG was found normal. Brain MRI showed findings consistent with multiple sclerosis. Will DC acyclovir in the afternoon. Exam Vital Signs Temp Pulse Resp BP Pulse Ox O2 Del Method O2 Flow Rate 98.3 F 82 18 140/93 H 97 Room Air 2 07/12/24 11:39 07/12/24 11:39 07/12/24 11:39 07/12/24 11:39 07/12/24 11:39 07/12/24 11:39 07/11/24 23:00 Narrative Exam Physical Exam GENERAL: NAD HEENT: Moist mucosa. Eyes open, swollen left side of the face CARDIO: Heart RRR, no obvious murmurs PULM: No noted coughing/dyspnea CTA B/L, no R/W/R GI: Abdomen soft, nondistended, no pain on palpation. BSx4 SKIN/MSK/EXT: No wounds/rashes/edema/amputations, no pain on palpation. Pedal pulses present B/L Objective Labs 07/12/24 04:20 07/12/24 04:20 Labs: Laboratory Results - last 24 hr 07/11/24 07/11/24 07/11/24 14:38 14:59 22:44 WBC 3.7 L RBC 4.83 Hgb 13.9 Hct 42.7 MCV 88 MCH 28.8 MCHC 32.6 RDW Std Deviation 43.8 Plt Count 181 Neut % (Auto) 75 Lymph % (Auto) 15 [place] % (Auto) 9 Eos % (Auto) 1 Baso % (Auto) 0 Neut # (Auto) 2.7 Lymph # (Auto) 0.5 L [place] # (Auto) 0.3 Eos # (Auto) 0.0 Baso # (Auto) 0.0 Immature Gran # (Auto) 0.03 H Absolute Nucleated RBC 0.00 Immature Gran % 1 H Nucleated RBC % 0 Sodium 144 Potassium 3.9 Chloride 110 H Carbon Dioxide 25.3 Anion Gap 9 BUN 12 Creatinine 0.7 Estim Creat Clear Calc 150.9 eGFR > 60 BUN/Creatinine Ratio 17 Glucose 131 H Calculated Osmolality 288 Lactic Acid 1.2 Calcium 8.9 Corrected Calcium 8.9 Phosphorus Magnesium Total Bilirubin 0.3 AST 128 H ALT 173 H Alkaline Phosphatase 71 Ammonia Total Protein 6.9 Albumin 4.5 Globulin 2.4 Albumin/Globulin Ratio 1.9 Ur Collection Type Clean Catch Urine Color Lt-Yellow Urine Clarity Clear Urine pH 7.5 H Ur Specific [place] 1.018 Urine Protein Trace Urine Glucose (UA) Trace Urine Ketones Negative Urine Blood Negative Urine Nitrite Negative Urine Bilirubin Negative Urine Urobilinogen (Auto) Negative Ur Leukocyte Esterase Negative Urine RBC 2 Urine WBC 1 Ur Squamous Epith Cells 0 Urine Bacteria None Ur Culture Indicated? Not Indicated Urine Opiates Screen Negative Urine Fentanyl Screen Negative Ur Barbiturates Screen Negative U Amphetamin/Meth Scrn Negative U Benzodiazepines Scrn Negative U Cocaine Metab Screen Negative U Marijuana (THC) Screen Negative Ethyl Alcohol < 10.0 HIV 1&2 Antibody Rapid 07/12/24 07/12/24 04:20 10:25 WBC 6.2 D RBC 5.26 Hgb 14.9 Hct 46.0 MCV 88 MCH 28.3 MCHC 32.4 RDW Std Deviation 42.8 Plt Count 199 Neut % (Auto) 70 Lymph % (Auto) 18 [place] % (Auto) 12 Eos % (Auto) 0 Baso % (Auto) 0 Neut # (Auto) 4.3 Lymph # (Auto) 1.1 [place] # (Auto) 0.7 Eos # (Auto) 0.0 Baso # (Auto) 0.0 Immature Gran # (Auto) 0.02 H Absolute Nucleated RBC 0.00 Immature Gran % 0 Nucleated RBC % 0 Sodium 137 Potassium 3.5 Chloride 103 Carbon Dioxide 24.2 Anion Gap 10 BUN 11 Creatinine 0.7 Estim Creat Clear Calc 150.9 eGFR > 60 BUN/Creatinine Ratio 16 Glucose 101 Calculated Osmolality 273 L Lactic Acid Calcium 9.6 Corrected Calcium 9.6 Phosphorus 4.2 Magnesium 2.0 Total Bilirubin 1.1 D AST 86 H ALT 142 H Alkaline Phosphatase 70 Ammonia 16 Total Protein 7.3 Albumin 4.5 Globulin 2.8 Albumin/Globulin Ratio 1.6 Ur Collection Type Urine Color Urine Clarity Urine pH Ur Specific [place] Urine Protein Urine Glucose (UA) Urine Ketones Urine Blood Urine Nitrite Urine Bilirubin Urine Urobilinogen (Auto) Ur Leukocyte Esterase Urine RBC Urine WBC Ur Squamous Epith Cells Urine Bacteria Ur Culture Indicated? Urine Opiates Screen Urine Fentanyl Screen Ur Barbiturates Screen U Amphetamin/Meth Scrn U Benzodiazepines Scrn U Cocaine Metab Screen U Marijuana (THC) Screen Ethyl Alcohol HIV 1&2 Antibody Rapid Non-Reactive Quality Measures Quality Measures none Assessment & Plan Assessment Current Active Medications: Generic Name Dose Route Start Last Admin Trade Name Freq PRN Reason Stop Dose Admin Acetaminophen 650 mg 07/11/24 17:57 07/12/24 05:31 Acetaminophen 325 Mg Tablet PO 08/10/24 17:56 650 mg Q6H PRN Administration Fever >100.5 Acetaminophen 650 mg 07/11/24 17:57 Acetaminophen 325 Mg Tablet PO 08/10/24 17:56 Q6H PRN PAIN SCALE 1-3 (mild Chlordiazepoxide HCl 50 mg 07/11/24 22:00 07/12/24 13:58 Chlordiazepoxide Hcl 25 Mg Capsule PO 07/16/24 21:59 50 mg TID CATHY Administration Docusate Sodium 100 mg 07/12/24 09:00 07/12/24 10:17 Docusate Sod 100 Mg Capsule PO 08/11/24 08:59 100 mg QDAY CATHY Administration Protocol Folic Acid 1 mg 07/11/24 21:00 07/12/24 10:18 Folic Acid 1 Mg Tablet PO 07/16/24 20:59 1 mg BID CATHY Administration Heparin Sodium (Porcine) 5,000 unit 07/12/24 06:00 07/12/24 05:32 Heparin Sod Inj 5000 Unit/Ml Vial SC 07/26/24 05:59 5,000 unit Q8HR CATHY Administration Acyclovir Sodium 700 mg/ 114 mls @ 100 mls/hr 07/12/24 09:00 07/12/24 13:58 Sodium Chloride IV 07/19/24 08:59 100 mls/hr Q8HR CATHY Administration Vancomycin HCl 250 mls @ 120 mls/hr 07/12/24 10:00 07/12/24 10:16 Vancomycin/Water 1250 Mg Ivpb IV 07/19/24 09:59 120 mls/hr Q12H CATHY Administration Protocol Piperacillin Sod/Tazobactam 100 mls @ 200 mls/hr 07/12/24 08:30 07/12/24 13:57 Sod 4.5 gm/ Sodium Chloride IV 07/19/24 08:29 200 mls/hr Q8HR CATHY Administration Protocol Levetiracetam 500 mg 07/12/24 21:00 Levetiracetam Inj 100 Mg/Ml Vial 5ml IVP 08/11/24 20:59 Q12HR CATHY Lorazepam 0.5 mg 07/11/24 17:57 Lorazepam 0.5 Mg Tablet PO 07/16/24 17:56 Q4HR PRN CIWA Score 2-6 Lorazepam 1 mg 07/11/24 18:09 Lorazepam 0.5 Mg Tablet PO 07/16/24 18:08 Q4HR PRN CIWA SCORE 7-11 Lorazepam 1 mg 07/11/24 18:11 07/11/24 18:30 Lorazepam 2 Mg/Ml Vial IV 07/16/24 17:56 1 mg Q2HR PRN Administration CIWA SCORE 12-16 Lorazepam 2 mg 07/11/24 18:11 Lorazepam 2 Mg/Ml Vial IVP 07/16/24 17:56 Q1HR PRN CIWA 17-21 Lorazepam 2 mg 07/11/24 18:21 Lorazepam 2 Mg/Ml Vial IVP 07/16/24 18:20 Q4HR PRN SEIZURES Ondansetron HCl 4 mg 07/11/24 17:57 Ondansetron Inj 2 Mg/Ml Inj 2 Ml IV 08/10/24 17:56 Q6H PRN NAUSEA OR VOMITING Protocol Pharmacy Consult 1 each 07/12/24 09:00 Vancomycin Pharmacy To Dose 1 Each Each IV 08/11/24 08:59 QDAY PRN PROTOCOL Thiamine HCl 100 mg 07/11/24 21:00 07/12/24 10:17 Thiamine 100 Mg Tablet PO 07/16/24 20:59 100 mg BID CATHY Administration Plan 38-year-old male with past medical history of seizures since the age of 14 supposed take Keppra however noncompliant, history of multiple sclerosis presented to the ED due to seizures. Apparently patient works at [employer] was not feeling okay went to the bathroom to wash his face and woke up in the ambulance. Patient is apparently a heavy drinker when asked he says he usually drinks 1-3 sixpacks. Patient apparently had 2 witnessed seizures with urinary incontinence. Patient was supposed to start multiple sclerosis medications however not able to. #Concern for encephalitis?ruled out Patient after having multiple seizures at this time patient was found to be febrile Spoke to neurology Dr Flowers recommended started patient on empiric treatment for encephalitis ? Started on vancomycin and Zosyn 07/12/2024- ? Started on acyclovir IV, discontinued in the afternoon ? Neurology, Dr Flowers consulted, appreciate recommendations #History of seizures Patient apparently has history of seizures since age of 14 possible to take Keppra however is not compliant Patient had 2 witnessed seizures with urinary incontinence Patient sees Dr. Flowers EEG normal ? Keppra 500 mg IV twice daily ? MRI brain with without contrast ? Neurology Dr Flowers consulted, appreciate recommendation ? Lorazepam 2 mg as needed for breakthrough seizures #Alcohol use disorder Patient admits drinking 1-3 sixpacks of beer Patient is shaking in the ED ? Librium 50 mg p.o. 3 times daily ? On CIWA protocol ? IV thiamine and folate #History of multiple sclerosis Patient sees Dr. Flowers in the office. Was discharged on multiple sclerosis medication however was not able to MRI C-spine showed table increased signal in the cervical cord on the precontrast images, demyelinating disease pattern. EEG was found normal ? Vitamin D daily ? Neurology consulted appreciate Case discussed with my senior Dr. Matias PGY-[address] Henny Hernandez MD PGY-1 Disposition: Telemetry Fluids: None Feeding: Regular Thrombo prophylaxis: Heparin Gastric Ulcer prophylaxis: None CODE STATUS: Full code Attending Provider Attestation/Addendum Cecily Oliver, , attest that I was physically present for the kathleen portions of the service and evaluated the patient with the resident and I reviewed and discussed the case with the resident and agree with the resident's findings and plans of care as documented above Patient seen and evaluated this AM. He states he is feeling well. CIWA score is 0. He denies any auditory, visual, tactile hallucinations, nausea, headache or anxiety.Patient had fevers overnight. However, he denies any diarrhea, dysuria, cough or productive sputum. MRI brain and c-spine was done, consistent with MS. No temporal enhancement was noted. Will DC acyclovir and start broad spectrum antibiotics. F/u with cultures.
[2024-07-12] MEDS: CHOLECALCIFEROL (Vitamin D3) 400 IU TABLET PO (15:26)
--- NOTE | 2024-07-12 16:15 | PC.SS ---
SS met with patient regarding his d/c plan.? Pt is alert/oriented.? Pt was admitted for Seizures.? Pt confirmed demographic and contact information is correct on facesheet.? Pt resides with dad.? Pt ambulates independently without assistance or DME.? Pt is ok with all ADLs. Pt is employed landscape crew leader. Patient?s pharmacy of choice is [facility] [address] Pt named his sister, Petrona Barrios medical decision maker if he is unable.? Patient?s choice is to return home upon d/c.? Pt states he is not diabetic and is not on dialysis.? Pt he has follow up appointment scheduled with PCP in Jul, 2024. D/C plan:? Return home Next of Kin:? Petrona Barrios, sister, phone# [phone] PCP:? Dr. [place] Address:? Correct on facesheet
--- NOTE | 2024-07-12 23:49 | PD.NEUROPROG ---
Documentation for date of: 07/12/24 Subjective Subjective Interval history: Patient was in telemetry today. He had fever spike overnight. No seizures were hypertension. Exam - Neurology Vital Signs Temp Pulse Resp BP Pulse Ox O2 Del Method O2 Flow Rate 97.8 F 84 17 148/93 H 98 Room Air 2 07/12/24 16:00 07/12/24 16:00 07/12/24 16:00 07/12/24 16:00 07/12/24 16:00 07/12/24 16:00 07/11/24 23:00 Narrative Exam GENERAL APPEARANCE: Well hydrated, well-nourished in no acute distress. HEENT: Normocephalic, atraumatic, extraocular movements intact. Pupils: Equal reacting to light and accommodation NECK: Supple, no JVD or bruits. CARDIOVASULAR: Heart: S1, S2 heard, regular without S3-S4 or murmur no rubs or gallops. LUNGS/CHEST: Clear to auscultation bilaterally. No rails, rhonchi, or wheezing. Normal inspection. ABDOMEN: Soft, nontender, with normal bowel sounds. No pulsatile masses. No rebound, rigidity, or guarding. Normal inspection and palpation. EXTREMITIES: Normal inspection and palpation. No edema, clubbing or cyanosis. SKIN: Warm and dry without rashes. Normal inspection. MUSCULOSKELETAL: No cervical, thoracic, lumbar or midline bony tenderness. Normal inspection. NEURO: Alert, awake and oriented x3. Cranial nerves: II through XII grossly intact. Speech and language: Normal with no dysarthria or dysphasia. Motor system: Tone and bulk: Normal: Strength: 5 out of 5 in all 4 extremities with exception of right foot drop. deep tendon reflexes: 2+ bilaterally symmetrical. Plantar reflex: Downgoing bilaterally. Sensory system: Intact to all modalities of sensation bilaterally. Coordination: Intact to [id number]-[id number] and hvwz-jpcs-says test bilaterally. No ataxia, no dysmetria, or dysdiadochokinesia noted. No intention tremors noted. Gait: not tested. No signs of meningeal irritation noted. PSYCHIATRIC: Normal mood and affect. Objective Labs 07/12/24 04:20 07/12/24 04:20 Labs: Laboratory Results - last 24 hr 07/12/24 07/12/24 04:20 10:25 WBC 6.2 D RBC 5.26 Hgb 14.9 Hct 46.0 MCV 88 MCH 28.3 MCHC 32.4 RDW Std Deviation 42.8 Plt Count 199 Neut % (Auto) 70 Lymph % (Auto) 18 [place] % (Auto) 12 Eos % (Auto) 0 Baso % (Auto) 0 Neut # (Auto) 4.3 Lymph # (Auto) 1.1 [place] # (Auto) 0.7 Eos # (Auto) 0.0 Baso # (Auto) 0.0 Immature Gran # (Auto) 0.02 H Absolute Nucleated RBC 0.00 Immature Gran % 0 Nucleated RBC % 0 Sodium 137 Potassium 3.5 Chloride 103 Carbon Dioxide 24.2 Anion Gap 10 BUN 11 Creatinine 0.7 Estim Creat Clear Calc 150.9 eGFR > 60 BUN/Creatinine Ratio 16 Glucose 101 Calculated Osmolality 273 L Calcium 9.6 Corrected Calcium 9.6 Phosphorus 4.2 Magnesium 2.0 Total Bilirubin 1.1 D AST 86 H ALT 142 H Alkaline Phosphatase 70 Ammonia 16 Total Protein 7.3 Albumin 4.5 Globulin 2.8 Albumin/Globulin Ratio 1.6 HIV 1&2 Antibody Rapid Non-Reactive Assessment & Plan Assessment and plan (1) Recurrent seizures: Status: Acute Assessment and plan: EEG: Normal continue with the Angeloppra, advised him about the importance of compliance and quit drinking and drugs to prevent recurrence. (2) Multiple sclerosis: Status: Chronic Assessment and plan: Will need to put him back on the Tecfider[employer], make sure that he is compliant on that too along with vitamin D daily. Follow-up with MRI brain and C-spine with contrast in the clinic.
== END 2024-07-12 16:50 | disposition left against medical advice (07) | DRG 53 ==
LOC: SERX 18:41 → SERHOLD 18:55 → S2NX 23:37
PROVIDERS: Nurse Practitioner Family; Student in an Organized Health Care Education/Training Program; Admitting Provider Internal Medicine; Emergency Provider Emergency Medicine; PCP Family Medicine; Visit Provider Internal Medicine
DX: G40.409 Other generalized epilepsy and epileptic syndromes, not intractable, without status epilepticus (principal); G35 Multiple sclerosis; S00.81XA Abrasion of other part of head, initial encounter; Y90.0 Blood alcohol level of less than 20 mg/100 ml; G93.40 Encephalopathy, unspecified; Z91.199 Patient's noncompliance with other medical treatment and regimen due to unspecified reason; F10.139 Alcohol abuse with withdrawal, unspecified; R50.9 Fever, unspecified; W19.XXXA Unspecified fall, initial encounter; Z53.09 Procedure and treatment not carried out because of other contraindication; Z53.29 Procedure and treatment not carried out because of patient's decision for other reasons
CPT/HCPCS: 36415; 70450; 70486; 70553; 71045; 72125; 72156; 80053; 80307; 80320; 81001; 82140; 83605; 83735; 84100; 85025; 86703; 87040; 87081; 87086; 95816; A9579; J0133; J1643; J1953; J2060; J2543; J3372; J3411; J7030; J7050; A9270; G0480

== ENCOUNTER → 2024-08-06 | Outpatient (CLI) | payer OTHER, MEDICAID, SELFPAY ==
--- NOTE | 2024-08-06 08:57 | XR_ITS ---
Examination: Abdomen sonogram, Limited Date and time of exam: August 06, 2024 0909 hrs. Indications: Elevated liver function tests on laboratory examination July 12, 2024 Technique: Real-time burgess scale transabdominal sonographic images of the upper abdomen obtained. Findings: Normal gallbladder Normal common bile duct 0.2 cm Pancreatic head 2.2 cm Liver 16 cm fatty infiltration no focal liver lesions Normal hepatopedal portal venous flow Patent IVC Impression: Normal gallbladder, normal common bile duct Fatty liver no focal liver lesions
== END | disposition home or self-care (01) ==
PROVIDERS: PCP Physician Assistant; Referring Provider Physician Assistant; Visit Provider Physician Assistant
DX: K76.0 Fatty (change of) liver, not elsewhere classified (principal)
CPT/HCPCS: 76705

== ENCOUNTER → 2024-08-09 | Outpatient (CLI) | payer OTHER, MEDICAID, SELFPAY ==
[2024-08-09 09:41] LABS: Glucose Estimated Average 111 mg/dL (80-131); Hemoglobin A1C 5.5 % Hgb (4.8-6.0); T4 (Thyroxine) 8.4 mcg/dL (4.5-10.9)
[2024-08-09 09:49] LABS: Anion Gap 5 (7-16); BUN/Creatinine Ratio 13 Ratio (12-20); Blood Urea Nitrogen 10 mg/dL (9-23); Calcium 9.8 mg/dL (8.3-10.6); Carbon Dioxide 28.4 mMol/L (20.0-31.0); Chloride 106 mMol/L (98-107); Creatinine (Component) 0.8 mg/dL (0.6-1.3); Free T4 (Free Thyroxine) 1.24 ng/dL (0.89-1.76); Glucose 95 mg/dL (74-106); Osmolality,Calculated 276 (275-295); Potassium 4.4 mMol/L (3.4-5.1); Sodium 139 mMol/L (136-145); Thyroid Stimulating Hormone 3.35 uIU/mL (0.55-4.78); eGFR > 60 See Note
[2024-08-13 06:39] LABS: Thyroid Peroxidase Antibodies* <1 IU/mL (<9)
== END | disposition home or self-care (01) ==
PROVIDERS: PCP Physician Assistant; Referring Provider Physician Assistant; Visit Provider Physician Assistant
DX: R73.03 Prediabetes (principal); R74.01 Elevation of levels of liver transaminase levels; R94.6 Abnormal results of thyroid function studies
CPT/HCPCS: 36415; 80048; 83036; 84436; 84439; 84443; 86376

== ENCOUNTER → 2024-08-23 | Outpatient (CLI) | payer OTHER, MEDICAID, SELFPAY ==
--- NOTE | 2024-08-23 08:00 | XR_ITS ---
Examination: MRI of brain without intravenous contrast. MRI brain with intravenous contrast. Date and time of exam:August 23, 2024 0729 hrs. Comparison September 09, 2024 Indications: Difficulty walking, paresthesias in the hands 12 years, diagnosis multiple sclerosis Technique: Multiple axial and sagittal images of the brain to been obtained. Siemens high-resolution 1.52 Sravanthi short bore scanner utilized. Sagittal sections, T1 weighted images, TR 500, TE 14, are performed. Axial sections proton-density and T2-weighted images have been obtained. Inversion recovery axial images, TR 9260, TE 111, TR 2500. Diffusion weighted images, axial sections, TR 4800, TE 128, B value 1000. Axial sections, ADC map, TR 4800, TE 128. Axial and coronal images were also obtained post 16 cc gadolinium administered intravenously. Findings:: Enlargement of the sella turcica is not present. The optic chiasm and infundibular stalk are not remarkable. There is no localized enlargement of the medulla or naren. Fourth ventricle and cerebellar tonsils appear normal in position. No subacute area of hemorrhage density is seen. Fourth ventricle is midline. Mass in the cerebellopontine angle region is not evident. 7th and 8th nerve complexes exhibit symmetry Globes are symmetrical Orbital musculature including medial lateral rectus muscles do not exhibit abnormality Increased white matter signal is extensive Effacement of the cortical sulcal markings is not identified. Mass effect upon the ventricular system is not identified. Diffusion-weighted images demonstrate no focus of restricted diffusion Contrast images demonstrate no abnormal enhancement Impression: Again noted extensive white matter change, demyelinating disease pattern
--- NOTE | 2024-08-23 08:45 | XR_ITS ---
Examination: MRI cervical spine, without intravenous contrast. MRI cervical spine , with intravenous contrast. Exam date and time: August 23, 2024 0729 hrs. Comparison July 12, 2024 Technique: Multiple axial, sagittal and coronal images of the cervical spine have been obtained with the Siemens high-resolution 1.5 Sravanthi MRI scanner. Images obtained included T2 weighted fat suppressed sagittal sections, TR 3500, TE 46, T2 weighted coronal fat suppressed images, TR 3050, TE 84, T2-weighted transverse fat suppressed images, TR 30-60, TE 63, proton density transverse images, TR 4720, TE 46, and T1 weighted coronal images, TR 560, TE 13. Axial, sagittal and coronal images are obtained post intravenous injection 60 cc gadolinium. Findings: Satisfactory alignment cervical vertebral bodies Moderate disc narrowing C5-C6. Diffuse cervical disc desiccation. Again noted increased signal throughout the cervical spine Postcontrast images demonstrate no abnormal osseous epidural or cervical cord enhancement Impression: Stable increased signal throughout the cervical cord, demyelinating disease pattern
== END | disposition home or self-care (01) ==
LOC: SMRI 07:11
PROVIDERS: PCP Physician Assistant; Referring Provider Psychiatry & Neurology Neurology; Visit Provider Psychiatry & Neurology Neurology
DX: R90.82 White matter disease, unspecified (principal)
CPT/HCPCS: 70553; 72156; A9579

== ENCOUNTER 2024-09-09 12:20 | Emergency (ER) | payer MEDICAID, SELFPAY ==
[2024-09-09 12:22] VITALS: BMI 25.7
[2024-09-09 12:23] VITALS: BP 126/86; PULSE 97; RESP 19; TEMP 36.7; O2SAT 97
--- NOTE | 2024-09-09 12:26 | XR_ITS ---
Examination: CT brain head without contrast. 2-D sagittal coronal reconstructions Date and time of exam:September 09, 2024 1248 hours INDICATIONS: Seizures today, patient fell injury to the head CTDI: vol (mGy):53.4 DLP: (mGycm):1076 Technique: Multiple CT axial sections of the brain have been obtained, 5 mm slice thickness. Contrast has not been administered. 2-D sagittal, coronal reconstructions have been obtained Low dose protocols were performed. One or more of the following dose reduction techniques were used; automated exposure control, adjustment of the mA and/or KV according to patient size, use of iterative reconstruction technique. Findings: No significant ventricular enlargement. Intra-axial or extra-axial hemorrhage density is not seen. No mass effect or midline shift Basal cisterns are not remarkable. Fourth ventricle is midline. Cranial vault intact. Impression: Negative for acute hemorrhage, mass effect or midline shift
--- NOTE | 2024-09-09 12:26 | EDNOTE_ITS ---
<Statement entered by Desi Andrew MD - 09/09/24 17:55> As co-signing physician, I was present and available for consult prn. I concur with the plan and care as documented by the midlevel provider. ED General RME/HPI General Chief complaint: Seizure Stated complaint: AMS Time Seen by Provider: 09/09/24 12:24 Arrival date/time: 09/09/24 12:20 CC: Altered mental status HPI patient presents the ER via EMS [place] Sister of the patient actually showed up, state telling EMS crew the patient has a history of MS, seizure disorder, and alcoholism. Patient is unable to tell us when he had a last drink but he is able to tell us what his name is but no date of . Patient is awake alert with slurred speech. At 1450, the patient was reinterviewed is much more awake and alert states that he fell off the wagon approximately 1 month ago, after being sober for 3 months. Patient has a history of seizures and MS but is noncompliant with medicines. Related Data Home Medications ?Medication ?Instructions ?Recorded ?Confirmed levetiracetam 500 mg tablet 500 mg PO QID 07/27/20 (Keppra) Previous Rx's ?Medication ?Instructions ?Recorded acetaminophen 500 mg capsule 1,000 mg (2 x 500 mg) PO Q8HR PRN 04/08/21 pain #60 caps ibuprofen 800 mg tablet 800 mg PO TID PRN pain #30 t abs 04/08/21 fexofenadine 180 mg tablet 180 mg PO Q24H #30 tabs (Nasreen Allergy) hydrocodone 5 mg-acetaminophen 325 1 tab PO BID PRN pa in #10 tabs 12/30/22 mg tablet ibuprofen 600 mg tablet 600 mg PO Q6H #30 tabs 12/30 acetaminophen 300 mg-codeine 30 mg 2 tab PO TID PRN pa in #20 tabs 03/22/24 tablet amoxicillin 875 mg-potassium 1 tab PO BID #10 tabs 05/05 clavulanate 125 mg tablet ibuprofen 800 mg tablet 800 mg PO Q8H PRN pain #30 t abs 03/22/24 ibuprofen 800 mg tablet 800 mg PO Q6H PRN pain #14 t abs 05/18/24 [id number] 3.3 4 drp otic (ear) QID # 10 mL 05/18/24 mg-3 mg-10 mg-0.5 mg/mL ear drops,susp (Cortisporin-TC) Allergies Allergy/AdvReac Type Severity Reaction Status Date / Time No Known Allergies Allergy Verified 09/09/24 12:55 Review of Systems Review of Systems ROS Unobtainable: unobtainable due to mental status Past Medical History Past Medical History NEUROLOGIC: Positive Neurological Disorders, Seizures and Multiple Sclerosis CARDIAC: Negative Congestive Heart Failure RESPIRATORY: Negative Chronic Obstructive Pulmonary Disease (COPD) GENITOURINARY: Negative Renal Disease ENDOCRINE: Negative Diabetes Mellitus Type 1 or Diabetes Mellitus Type 2 Surgical History SURGICAL: Positive Ear Surgery and Abdominal Surgery Social History SMOKING STATUS: Former smoker SUBSTANCE USE: does not use ED Exam Narrative Physical exam: [General: Awake, appears not in any acute distress Head normocephalic center forehead abrasion without laceration no active bleeding no step-offs induration ulceration or crepitus HEENT: Eyes pupils are PERRLA EOMs are intact tracking mouth pink dry membranes uvula is midline phonation is normal. Nose no rhinorrhea or epistaxis. All other subsystems of ATTR within acceptable limits Neck is supple nontender full range of motion flexion extension Chest equal chest rise nontender to palpation Respiratory: Clear to auscultation no wheezes crackles or rubs CV: Rate rhythm is regular no murmurs rubs or clicks Abdomen is soft nontender no masses positive bowel sounds all 4 quadrants Back: No CVA tenderness no spinous process tenderness from cervical spine thoracic and lumbar spine Skin: Intact no petechiae rash induration ulceration or crepitus Extremities: Moving all extremity against resistance cap refill less than 2 seconds neurosensory intact Neuro: Awake alert responding to very simple questions with yes or no. Course Course Course Narrative: Reassessment of this patient at CT 1449, the patient is awake eating a sandwich drinking coffee patient has mild tremors in his hands and is slow but is answering all questions appropriately. Patient states she has somebody to pick him up if he is going to be discharged. There is been no deterioration in neurologic status or seizures during the course of his visit to the emergency room. CT of the head is negative alcohol level is 308. Quality Measures none Orders Category Date Time Status Saline [Insert IV] NOW Care 09/09/24 12:[address] head/brain wo con Stat Exams 09/09/24 12:26 Completed Alcohol, Blood Medical Stat Lab 09/09/24 12:38 Completed CBC Stat Lab 09/09/24 12:38 Completed CMP [Comprehensive Metabolic Panel] Stat Lab 09/09/24 12:38 Completed PT [Prothrombin Time with INR] Stat Lab 09/09/24 12:38 Completed PTT [Partial Thromboplastin Time] Stat Lab 09/09/24 12:38 Completed LORazepam [Ativan Inj] Med 09/09/24 12:37 Discontinued 2 mg IVP X1 ONE levETIRAcetam INJ [Keppra Inj] Med 09/09/24 12:25 Discontinued 1,000 mg IVP X1 ONE Vital Signs Vital signs: Vital Signs Temperature 98.1 F 09/09/24 12:23 Pulse Rate 97 09/09/24 12:23 Respiratory Rate 19 09/09/24 12:23 Blood Pressure 126/86 H 09/09/24 12:23 Pulse Oximetry (%) 97 09/09/24 12:23 Oxygen Delivery Method Room Air 09/09/24 12:23 [facility] Patient data External records reviewed:: [facility] previous records Clinical information provided by:: patient Social determinants that could affect healthcare access:: none Patient has the following chronic illnesses:: Reported MS, seizure disorder, alcoholism How is presenting disease/condition affected by chronic disease/condition?: e xacerbated by Evaluation data The following diagnostics were reviewed and interpreted by me:: lab results and radiology exam(s) Lab and/or radiology exams considered but not ordered:: CT of the head is interpreted by me read by radiology as negative for any acute finding. CBC shows no acute leukocytosis anemia thrombocytopenia Coags within acceptable limits CMP shows a chloride of 109 BUN of 7 but no other acute electrolyte imbalances renal impairment. No T. bili elevation. AST is 39 ALT is 55 alk phos of 68. Alcohol level is 309. Interpretation Summary: Alcohol intoxication possible fall possible seizure At 1610, sister at bedside states the patient has difficulty walking secondary to his MS. Patient has had no seizures or deterioration in neurologic status throughout his visit the emergency room he is consumed 2 sandwiches and juices as well as coffee. At this time he is awake alert oriented uncomfortable discharging this patient home to his care of his family. Medications Medications considered but not ordered:: None Medication administrations:: Medication Administration History Discontinued Medications Levetiracetam (Levetiracetam Inj 100 Mg/Ml Vial 5ml) 1,000 mg IVP X1 ONE Stop: 09/09/24 12:26 Last Admin: 09/09/24 12:43 Dose: 1,000 mg Documented By: [facility] Lorazepam (Lorazepam 2 Mg/Ml Vial) 2 mg IVP X1 ONE Stop: 09/09/24 12:38 Last Admin: 09/09/24 12:42 Dose: 2 mg Documented By: [facility] None Consultations Consultation(s) initiated? (list below): No Diagnosis Differential Diagnosis ED Complaint MDM: Closed head injury facial fracture seizure disorder alcohol intoxication Most likely diagnosis given after review of the tests above:: Alcohol intoxication Admission Indicated Admission indicated?: not indicated Explain why admission is indicated or not indicated:: Stable for discharge Admission Request Was there a request for admission?: No Admission Attestation Admission request attestation: Negative Disposition Plan Disposition Plan: Discharge Discharge Attestation Discharge Attestation: The patient and all family members were given an opportunity to ask questions and understood the discharge instructions. Discharge instructions specifically effects, indications for sooner follow up or return to the emergency department, and the expected course of current diagnosis. Patient condition: Stable Medical Decision Making Differential Diagnosis Differential Diagnosis: Closed head injury facial fracture seizure disorder alcohol intoxication Lab Data 09/09/24 12:38 09/09/24 12:38 Labs: Lab Results 09/09/24 Range/Units 12:38 WBC 4.3 (3.8-10.6) Thou/mm3 RBC 5.68 (4.50-5.90) Miln/mm3 Hgb 15.7 (13.5-16.0) g/dL Hct 48.0 (41.0-53.0) % MCV 85 (80-100) fL MCH 27.6 (25.0-35.0) pg MCHC 32.7 (31.0-37.0) g/dl RDW Std Deviation 38.2 (35.1-43.9) fL Plt Count 215 (140-440) Thou/mm3 Neut % (Auto) 60 (37-80) % Lymph % (Auto) 32 (10-50) % Garden % (Auto) 7 (0-12) % Eos % (Auto) 1 (0-10) % Baso % (Auto) 1 (0-2.5) % Neut # (Auto) 2.6 (1.8-7.7) Thou/mm3 Lymph # (Auto) 1.4 (1.0-4.8) Thou/mm3 Garden # (Auto) 0.3 (0.0-0.8) Thou/mm3 Eos # (Auto) 0.0 (0.0-0.5) Thou/mm3 Baso # (Auto) 0.0 (0.0-0.2) Thou/mm3 Immature Gran # (Auto) 0.01 H (0.00-0.00) Thou/mm3 Absolute Nucleated RBC 0.00 (0.00-0.00) Thou/mm3 Immature Gran % 0 (0-0) % Nucleated RBC % 0 (0) /100 WBC PT 10.2 (9.0-12.2) Seconds INR 0.9 (0.9-1.3) APTT 28.8 (22.0-36.0) Seconds Sodium 144 (136-145) mMol/L Potassium 4.1 (3.4-5.1) mMol/L Chloride 109 H (98-107) mMol/L Carbon Dioxide 26.9 (20.0-31.0) mMol/L Anion Gap 8 (7-16) BUN 7 L (9-23) mg/dL Creatinine 0.8 (0.6-1.3) mg/dL Estim Creat Clear Calc 132.0 (>60) mL/min eGFR > 60 (60 - ) See Note BUN/Creatinine Ratio 9 L (12-20) Ratio Glucose 98 (74-106) mg/dL Calculated Osmolality 284 (275-295) Calcium 9.3 (8.3-10.6) mg/dL Corrected Calcium 9.3 (8.5-10.1) mg/dL Total Bilirubin 0.3 (0.3-1.2) mg/dL AST 39 H (0-34) U/L ALT 55 H (10-49) U/L Alkaline Phosphatase 68 (46-116) U/L Total Protein 7.7 (5.7-8.2) gm/dL Albumin 4.7 (3.5-5.0) gm/dL Globulin 3.0 (2.3-3.5) gm/dL Albumin/Globulin Ratio 1.6 (1.2-2.2) Ethyl Alcohol 309.0 H (0-10.0) mg/dL Discharge Plan Plan Patient Disposition: HOME (Self Care) Patient condition on transfer: Stable Prescriptions/Referrals Prescriptions/Med Rec: No Action levetiracetam [Keppra] 500 mg Tablet 500 mg PO QID ibuprofen 800 mg tablet 800 mg PO TID PRN (Reason: pain) Qty: 30 0RF acetaminophen 500 mg capsule 1,000 mg PO Q8HR PRN (Reason: pain) Qty: 60 0RF ibuprofen 600 mg tablet 600 mg PO Q6H Qty: 30 0RF hydrocodone-acetaminophen 5-325 mg tablet 1 tab PO BID MDD 10 PRN (Reason: pain) Qty: 10 0RF acetaminophen-codeine 300-30 mg tablet 2 tab PO TID MDD 6 PRN (Reason: pain) Qty: 20 0RF ibuprofen 800 mg tablet 800 mg PO Q8H PRN (Reason: pain) Qty: 30 0RF amoxicillin-pot clavulanate 875-125 mg tablet 1 tab PO BID Qty: 10 0RF ibuprofen 800 mg tablet 800 mg PO Q6H PRN (Reason: pain) Qty: 14 0RF Cortisporin-TC 3.3-3-10-0.5 mg/mL drops,suspension 4 drp otic (ear) QID Qty: 10 0RF fexofenadine [Nasreen Allergy] 180 mg tablet 180 mg PO Q24H Qty: 30 0RF Referrals: [place] PA-C [Primary Care Provider] - In 1 week Problem List Clinical Impression: Alcohol intoxication, Forehead abrasion Patient/Caregiver Discharge Instructions Education Materials: ED Alcohol Intoxication Print Language: Pakistani Stand Alone Forms: Camilla Award Info., Work/School Release, Patient Portal Info Letter ALYCIA/KAREN Supervising Physician ALYCIA/KAREN Supervising Physician: Krishna Gallegos ENP
[2024-09-09 12:30] VITALS: PULSE 92; BMI 27.6
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
[2024-09-09] MEDS: LORazepam 2 MG/ML VIAL IVP (12:42)
[2024-09-09] MEDS: levETIRAcetam INJ 100 MG/ML VIAL 5ML 1000 MG IVP (12:43)
[2024-09-09 12:49] LABS: Basophils % (Auto) 1 % (0-2.5); Eosinophils % (Auto) 1 % (0-10); Hemoglobin 15.7 g/dL (13.5-16.0); Immature Granulocytes % (Auto) 0 % (0-0); Immature Granulocytes Auto 0.01 Thou/mm3 (0.00-0.00); Lymphocytes # (Auto) 1.4 Thou/mm3 (1.0-4.8); Lymphocytes % (Auto) 32 % (10-50); Mean Corpuscular HGB Conc 32.7 g/dl (31.0-37.0); Mean Corpuscular Hemoglobin 27.6 pg (25.0-35.0); Mean Corpuscular Volume 85 fL (80-100); Monocytes # (Auto) 0.3 Thou/mm3 (0.0-0.8); Monocytes % (Auto) 7 % (0-12); Neutrophils # (Auto) 2.6 Thou/mm3 (1.8-7.7); Neutrophils % (Auto) 60 % (37-80); Nucleated Red Blood Cell % 0 /100 WBC (0); Platelet Count 215 Thou/mm3 (140-440); RDW Standard Deviation 38.2 fL (35.1-43.9); Red Blood Count 5.68 Miln/mm3 (4.50-5.90); White Blood Count 4.3 Thou/mm3 (3.8-10.6)
[2024-09-09 13:11] LABS: INR 0.9 (0.9-1.3); Partial Thromboplastin Time 28.8 Seconds (22.0-36.0); Prothrombin Time 10.2 Seconds (9.0-12.2)
[2024-09-09 13:30] LABS: Alanine Aminotransferase 55 U/L (10-49); Albumin, Serum 4.7 gm/dL (3.5-5.0); Albumin/Globulin Ratio 1.6 (1.2-2.2); Alkaline Phosphatase 68 U/L (46-116); Anion Gap 8 (7-16); Aspartate Amino Transferase 39 U/L (0-34); BUN/Creatinine Ratio 9 Ratio (12-20); Bilirubin,Total 0.3 mg/dL (0.3-1.2); Blood Urea Nitrogen 7 mg/dL (9-23); Calcium 9.3 mg/dL (8.3-10.6); Calcium (Corrected) 9.3 mg/dL (8.5-10.1); Carbon Dioxide 26.9 mMol/L (20.0-31.0); Chloride 109 mMol/L (98-107); Creatinine (Component) 0.8 mg/dL (0.6-1.3); Glucose 98 mg/dL (74-106); Osmolality,Calculated 284 (275-295); Potassium 4.1 mMol/L (3.4-5.1); Sodium 144 mMol/L (136-145); Total Protein 7.7 gm/dL (5.7-8.2); eGFR > 60 See Note
[2024-09-09 13:53] VITALS: BP 110/62; PULSE 106; RESP 15; O2SAT 95
[2024-09-09 14:02] VITALS: BP 110/56; PULSE 93; RESP 15; TEMP 36.7; O2SAT 96
--- NOTE | 2024-09-09 14:30 | PC.NURSE ---
PT GIVEN COFFEE AND SANDWICH. WILL HAVE PT WALK AFTER DONE EATING
--- NOTE | 2024-09-09 14:40 | PC.NURSE ---
Patient is unable to stand without assistance. Gait is unsteady
[2024-09-09 14:45] VITALS: BP 108/87; PULSE 98; RESP 16; O2SAT 94
--- NOTE | 2024-09-09 14:50 | PC.NURSE ---
ATTEMPTED TO GET PT TO STAND TO WALK AND PT UNABLE TO GET FROM SITTING TO STANDING WITHOUT MAX ASSIST AND THEN UNABLE TO STAY STANDING. PT STATES HAS NO ONE THAT CAN PICK HIM UP. WILL INFORM PROVIDER
--- NOTE | 2024-09-09 15:56 | PC.NURSE ---
PT HAS BEEN SLEEPING SINCE ATTEMPTING TO WALK EARLIER
--- NOTE | 2024-09-09 16:05 | PC.NURSE ---
patiens gait is unsteady. patient is unable to walk. reported to provider
--- NOTE | 2024-09-09 16:11 | PC.NURSE ---
SISTER IN ROOM SEEING PT. JEANNETTE N/Juan Manuel INFORMED AND WENT TO ROOM TO TALK WITH SISTER. SISTER TO GO GET PT CLOTHING AND WILL BE BACK TO TAKE PT HOME
[2024-09-09 16:17] VITALS: BP 131/81; PULSE 102; RESP 18; TEMP 36.8; O2SAT 95
--- NOTE | 2024-09-09 16:45 | PC.NURSE ---
PT STEADIER ON FEET AND ABLE TO TRANSFER GURNEY TO WHEELCHAIR
== END 2024-09-09 16:45 | disposition home or self-care (01) ==
PROVIDERS: Registered Nurse General Practice; Emergency Provider Emergency Medicine; PCP Physician Assistant
DX: F10.129 Alcohol abuse with intoxication, unspecified (principal); S00.81XA Abrasion of other part of head, initial encounter; Y90.8 Blood alcohol level of 240 mg/100 ml or more; W19.XXXA Unspecified fall, initial encounter
CPT/HCPCS: 36415; 70450; 80053; 80320; 85025; 85610; 85730; 96374; 96375; 99284; J1953; J2060; G0480

== ENCOUNTER 2025-03-08 20:03 | Emergency (ER) | payer MEDICAID, SELFPAY ==
[2025-03-08 20:05] VITALS: BMI 27.8
[2025-03-08 20:19] VITALS: BP 117/88; PULSE 100; RESP 20; TEMP 36.8; O2SAT 98
--- NOTE | 2025-03-08 20:45 | PD.EDADULT ---
ED General RME/HPI General Chief complaint: General Adult/Misc Complain Stated complaint: BLEEDING FROM CHARLEY R LOWER LEG Time Seen by Provider: 03/08/25 20:31 Arrival date/time: 03/08/25 20:03 This is a case of 39-year-old male with history of engorged varicose pain on both lower extremities came in in the emergency room due to bleeding varicose vein history of present illness started 30 minutes prior to arrival in the emergency room patient accidentally burned his right lower extremities on a table causing his varicose vein to bleed patient placed a pressure dressing prior to arrival in the emergency room does not bleeding is controlled prior to arrival in the emergency room patient tetanus shot is up-to-date Limitations: no limitations Related Data Home Medications ?Medication ?Instructions ?Recorded ?Confirmed levetiracetam 500 mg tablet 500 mg PO QID 07/27/20 04/08/21 (Keppra) Previous Rx's ?Medication ?Instructions ?Recorded acetaminophen 500 mg capsule 1,000 mg (2 x 500 mg) PO Q8HR PRN 04/08/21 pain #60 caps ibuprofen 800 mg tablet 800 mg PO TID PRN pain #30 tabs 04/08/21 fexofenadine 180 mg tablet 180 mg PO Q24H #30 tabs 04/07/22 (Nasreen Allergy) hydrocodone 5 mg-acetaminophen 325 1 tab PO BID PRN pain #10 tabs 12/30/22 mg tablet ibuprofen 600 mg tablet 600 mg PO Q6H #30 tabs 12/30/22 acetaminophen 300 mg-codeine 30 mg 2 tab PO TID PRN pain #20 tabs 03/22/24 tablet amoxicillin 875 mg-potassium 1 tab PO BID #10 tabs 03/22/24 clavulanate 125 mg tablet ibuprofen 800 mg tablet 800 mg PO Q8H PRN pain #30 tabs 03/22/24 ibuprofen 800 mg tablet 800 mg PO Q6H PRN pain #14 tabs 05/18/24 [id number] 3.3 4 drp otic (ear) QID #10 mL 05/18/24 mg-3 mg-10 mg-0.5 mg/mL ear drops,susp (Cortisporin-TC) cephalexin 500 mg capsule 500 mg PO Q8H #30 caps 03/08/25 mupirocin 2 % topical ointment 1 applic topical TID #22 grams 03/08/25 Allergies Allergy/AdvReac Type Severity Reaction Status Date / Time No Known Allergies Allergy Verified 03/08/25 20:08 Review of Systems Review of Systems Systems Reviewed: All systems reviewed, normal except as documented Constitutional Constitutional: Reports system reviewed and no additional complaints, except as documented and Reports as per HPI Cardiovascular Cardiovascular: Reports system reviewed and no additional complaints, except as documented and Reports as per HPI Gastrointestinal Gastrointestinal: Reports system reviewed and no additional complaints, except as documented and Reports as per HPI Genitourinary Genitourinary: Reports system reviewed and no additional complaints, except as documented Musculoskeletal Musculoskeletal: Reports system reviewed and no additional complaints, except as documented and Reports as per HPI Neurologic Neurologic: Reports system reviewed and no additional complaints, except as documented and Reports as per HPI Past Medical History Past Medical History NEUROLOGIC: Positive Neurological Disorders, Seizures and Multiple Sclerosis CARDIAC: Negative Congestive Heart Failure RESPIRATORY: Negative Chronic Obstructive Pulmonary Disease (COPD) GENITOURINARY: Negative Renal Disease ENDOCRINE: Negative Diabetes Mellitus Type 1 or Diabetes Mellitus Type 2 Surgical History SURGICAL: Positive Ear Surgery and Abdominal Surgery Social History SMOKING STATUS: Never smoker SUBSTANCE USE: does not use ED Exam General Limitations: Present no limitations General appearance: Present alert, in no apparent distress and other (Patient is awake alert oriented not in distress nontoxic looking well-hydrated well-nourished) Head Head exam: Present atraumatic, normocephalic and normal inspection Eye Eye exam: Present normal appearance, PERRL and EOMI ENT ENT exam: Present normal exam, normal oropharynx and mucous membranes moist Neck Neck exam: Present normal inspection, full ROM and trachea midline; Absent tenderness, meningismus, lymphadenopathy or thyromegaly Chest Chest inspection: Present normal inspection and symmetric chest wall rise; Absent tenderness Respiratory Respiratory exam: Present normal lung sounds bilaterally; Absent respiratory distress, wheezes, stridor, accessory muscle use or prolonged expiratory phase Cardiovascular Cardiovascular exam: Present regular rate, normal rhythm and normal heart sounds; Absent bradycardia, tachycardia, irregular rhythm, systolic murmur or diastolic murmur Abdominal Exam Abdominal exam: Present soft and normal bowel sounds; Absent distention, tenderness, guarding, rebound, rigidity, diminished bowel sounds, hyperactive bowel sounds, hypoactive bowel sounds or organomegaly Extremities Exam Extremities exam: Present normal inspection and full ROM Expanded Lower Extremity Exam Lower leg exam: Present other (Noted no tenderness no swelling noted engorged varicose vein on both lower extremities noted on the right lateral aspect engorged varicose vein open but no bleeding pulses were full and equal capillary refill less than 2 seconds motor or sensory reflex were all normal negative Homans signs negative ); Absent tenderness, swelling, abrasion, laceration, ecchymosis, deformity, crepitus, dislocation, erythema, palpable cord, Homans' sign or Achilles tendon intact Back Exam Back exam: Present normal inspection and full ROM Neurological Exam Neurological exam: Present alert, oriented X3, CN II-XII intact, normal gait and reflexes normal; Absent motor sensory deficit Psychiatric Psychiatric exam: Present normal affect and normal mood Skin Skin exam: Present warm, dry, intact and normal color Course Quality Measures none Vital Signs Vital signs: Vital Signs Temperature 98.3 F 03/08/25 20:19 Pulse Rate 100 03/08/25 20:19 Respiratory Rate 20 03/08/25 20:19 Blood Pressure 117/88 H 03/08/25 20:19 Pulse Oximetry (%) 98 03/08/25 20:19 Oxygen Delivery Method Room Air 03/08/25 20:19 Oxygen saturation is 98% in room air normal Discharge Plan Plan Patient Disposition: HOME (Self Care) Patient condition on transfer: Stable Prescriptions/Referrals Prescriptions/Med Rec: New cephalexin 500 mg capsule 500 mg PO Q8H Qty: 30 0RF mupirocin 2 % ointment 1 applic topical TID Qty: 22 0RF No Action levetiracetam [Keppra] 500 mg Tablet 500 mg PO QID ibuprofen 800 mg tablet 800 mg PO TID PRN (Reason: pain) Qty: 30 0RF acetaminophen 500 mg capsule 1,000 mg PO Q8HR PRN (Reason: pain) Qty: 60 0RF ibuprofen 600 mg tablet 600 mg PO Q6H Qty: 30 0RF hydrocodone-acetaminophen 5-325 mg tablet 1 tab PO BID MDD 10 PRN (Reason: pain) Qty: 10 0RF acetaminophen-codeine 300-30 mg tablet 2 tab PO TID MDD 6 PRN (Reason: pain) Qty: 20 0RF ibuprofen 800 mg tablet 800 mg PO Q8H PRN (Reason: pain) Qty: 30 0RF amoxicillin-pot clavulanate 875-125 mg tablet 1 tab PO BID Qty: 10 0RF ibuprofen 800 mg tablet 800 mg PO Q6H PRN (Reason: pain) Qty: 14 0RF Cortisporin-TC 3.3-3-10-0.5 mg/mL drops,suspension 4 drp otic (ear) QID Qty: 10 0RF fexofenadine [Nasreen Allergy] 180 mg tablet 180 mg PO Q24H Qty: 30 0RF Problem List Clinical Impression: Bleeding from varicose vein, Varicose vein of leg Patient/Caregiver Discharge Instructions Education Materials: Spider Varicose Vein Self Care, ED Varicose Veins Additional Instructions: Follow-up with your primary care physician in 2 days for reevaluation and to be referred to thoracic surgeon for further evaluation and treatment of engorged varicose vein worsening symptoms or any emergent concern or recurrence of bleeding return to the emergency room immediately or call 911 keep the area clean and dry keep the Hans bandage in place take your medication and finish the course of antibiotic use of HOMER hose stocking is advised elevate your both lower extremities is advised for good circulation Print Language: Palauan Stand Alone Forms: Rapid[employer] Award Info., Patient Portal Info Letter PA/COMPUTATIONAL MATHEMATICIAN Supervising Physician PA/COMPUTATIONAL MATHEMATICIAN Supervising Physician: Dr. Sarwat Coffman MDM Narrative MDM hospital course (for use when minimal MDM required): This is a case of 39-year-old male with history of engorged varicose pain on both lower extremities came in in the emergency room due to bleeding varicose vein history of present illness started 30 minutes prior to arrival in the emergency room patient accidentally burned his right lower extremities on a table causing his varicose vein to bleed patient placed a pressure dressing prior to arrival in the emergency room does not bleeding is controlled prior to arrival in the emergency room patient tetanus shot is up-to-date physical examination patient is awake alert oriented not in distress nontoxic looking well-hydrated well-nourished noted both lower extremities engorged varicose pain but no tenderness no swelling no calf tenderness negative Homans signs no negative Nair sign noted a open wound on the area of the varicose vein on the right lateral aspect of the right leg but no bleeding noted the rest of the physical examination and neurological exam is normal and unremarkable patient was observed for 30 minutes there is no recurrence of bleeding wound was clean apply triple antibiotic and was applied Hans bandage patient tolerated well neurovascular intact patient was advised to follow-up with PCP to be referred to thoracic surgeon for further evaluation and treatment varicose vein he will continue the Hans bandage on the right lower extremities he was prescribed with cephalexin and mupirocin to prevent infection he will use HOMER hose stocking and elevate both lower extremities for good blood circulation follow-up with PCP and worsening symptoms or any emergent condition return precaution in the ER was advised Patient was discharged with comfortable condition walking with stable gait. Patient verbalized no further complains explained diagnosis and answered patient question. Patient is comfortable with the proposed management plan including the need to follow up with his/her primary care physician and any specialist if applicable Discussed patient for any urgent condition or worsening sx, He/She needed to go to emergency room immediately or call 911. Patient acknowledge the responsibility to follow up as instructed and to monitor her/his symptoms. For any persistence of the symptoms for more than 3-5 days return precaution advised. Discussed the result of the test and was given printed discharge instruction Clinical Information Provided by: none Medical Records reviewed [facility] Meds/Rx considered, not ordered None Labs/Rad/Tests considered, not ordered None Chronic Illness/Social Conditions which may negatively complicate care or outcome(s)-explain: None or not applicable EKG EKG not done Labs Labs: none Imaging Imaging interpretation: none Medication Administration(s) none Diagnosis Differential Diagnosis ED Complaint MDM: Bleeding engorged varicose vein Diagnoses ruled out and/or further discussions: Bleeding engorged varicose vein
== END 2025-03-08 21:18 | disposition home or self-care (01) ==
LOC: SERX 21:47
PROVIDERS: Emergency Provider Emergency Medicine
DX: I83.891 Varicose veins of right lower extremity with other complications (principal)
CPT/HCPCS: 99281

== ENCOUNTER → 2025-03-21 | Outpatient (CLI) | payer MEDICAID, SELFPAY ==
--- NOTE | 2025-03-21 11:15 | XR_ITS ---
Examination: Abdomen sonogram, Limited Date and time of exam: March 21, 2025, 11:00 a.m. INDICATIONS: Elevated liver function test on laboratory examination September 09, 2024 Technique: Real-time burgess scale transabdominal sonographic images of the upper abdomen obtained. Findings: Negative for gallstones. Gallbladder wall 0.4 cm Common bile duct 0.3 cm Pancreatic head 2.8 cm Liver 17.2 cm fatty infiltration no focal liver lesions Normal hepatopetal portal venous flow Patent IVC IMPRESSION: Negative for gallstones Borderline thickening gallbladder wall, clinical correlation advised, consider HIDA scan follow-up
== END | disposition home or self-care (01) ==
PROVIDERS: PCP Physician Assistant; Referring Provider Physician Assistant; Visit Provider Physician Assistant
DX: K82.8 Other specified diseases of gallbladder (principal)
CPT/HCPCS: 76705

== ENCOUNTER → 2025-05-26 | Outpatient (CLI) | payer MEDICAID, SELFPAY ==
--- NOTE | 2025-05-26 | XR_ITS ---
Examination: Knee bilateral, 6 views Technique: Knee AP, lateral, oblique each knee total 6 views INDICATIONS: Bilateral knee pain 1 year Date and time of exam: May 26, 2025, 0812 hours FINDINGS: No fracture or dislocation involving either knee Mild bilateral tricompartment osteoarthritis Small bilateral knee effusions IMPRESSION: Mild bilateral tricompartment osteoarthritis
== END | disposition home or self-care (01) ==
PROVIDERS: PCP Physician Assistant; Referring Provider Physician Assistant; Visit Provider Physician Assistant
DX: M17.0 Bilateral primary osteoarthritis of knee (principal)
CPT/HCPCS: 73562

== ENCOUNTER 2025-06-04 19:32 | Emergency (ER) | payer MEDICAID, SELFPAY ==
[2025-06-04 19:35] VITALS: BMI 27.8
[2025-06-04 19:42] VITALS: BP 143/82; PULSE 77; RESP 20; TEMP 36.6; O2SAT 99
--- NOTE | 2025-06-04 19:45 | PD.EDALLER ---
ED Allergic Reaction RME/HPI General Chief complaint: Allergic Reaction Stated complaint: RASH Time Seen by Provider: 06/04/25 19:46 Arrival date/time: 06/04/25 19:32 RME / HPI RME / HPI narrative: See [facility] for Dr. Hallman's HPI Documentation. Related Data Home Medications ?Medication ?Instructions ?Recorded ?Confirmed levetiracetam 500 mg tablet 500 mg PO QID 07/27/20 04/08/21 (Keppra) Previous Rx's ?Medication ?Instructions ?Recorded acetaminophen 500 mg capsule 1,000 mg (2 x 500 mg) PO Q8HR PRN 04/08/21 pain #60 caps ibuprofen 800 mg tablet 800 mg PO TID PRN pain #30 tabs 04/08/21 fexofenadine 180 mg tablet 180 mg PO Q24H #30 tabs 04/07/22 (Nasreen Allergy) hydrocodone 5 mg-acetaminophen 325 1 tab PO BID PRN pain #10 tabs 12/30/22 mg tablet ibuprofen 600 mg tablet 600 mg PO Q6H #30 tabs 12/30/22 acetaminophen 300 mg-codeine 30 mg 2 tab PO TID PRN pain #20 tabs 03/22/24 tablet amoxicillin 875 mg-potassium 1 tab PO BID #10 tabs 03/22/24 clavulanate 125 mg tablet ibuprofen 800 mg tablet 800 mg PO Q8H PRN pain #30 tabs 03/22/24 ibuprofen 800 mg tablet 800 mg PO Q6H PRN pain #14 tabs 05/18/24 [id number] 3.3 4 drp otic (ear) QID #10 mL 05/18/24 mg-3 mg-10 mg-0.5 mg/mL ear drops,susp (Cortisporin-TC) cephalexin 500 mg capsule 500 mg PO Q8H #30 caps 03/08/25 mupirocin 2 % topical ointment 1 applic topical TID #22 grams 03/08/25 epinephrine 0.3 mg/0.3 mL 0.3 ml subcut .once PRN 06/04/25 injection, auto-injector (EpiPen) hypersensitivity reaction #2 ea prednisone 50 mg tablet 50 mg PO BID 2 days #4 tabs 06/04/25 Allergies Allergy/AdvReac Type Severity Reaction Status Date / Time No Known Allergies Allergy Verified 06/04/25 19:33 Review of Systems Review of Systems Systems Reviewed: All systems reviewed, normal except as documented Past Medical History Past Medical History NEUROLOGIC: Positive Neurological Disorders, Seizures and Multiple Sclerosis Surgical History SURGICAL: Positive Ear Surgery and Abdominal Surgery ED Exam Narrative Physical exam: See [facility] for Dr. Hallman's Physical Exam Documentation. Course Quality Measures none Orders Category Date Time Status DiphenhydrAMINE [Benadryl] Med 06/04/25 19:46 Discontinued 50 mg PO X1 ONE Famotidine [Pepcid] Med 06/04/25 19:46 Discontinued 40 mg PO X1 ONE predniSONE Med 06/04/25 19:46 Discontinued 60 mg PO X1 ONE Vital Signs Vital signs: Vital Signs Temperature 97.9 F 06/04/25 19:42 Pulse Rate 77 06/04/25 19:42 Respiratory Rate 20 06/04/25 19:42 Blood Pressure 143/82 H 06/04/25 19:42 Pulse Oximetry (%) 99 06/04/25 19:42 Oxygen Delivery Method Room Air 06/04/25 19:42 Allergic Reaction [facility] Narrative [facility] Narrative:: This section includes all my notes and documentations, including HPI, PE, and ED course. Ryan Hallman MD HPI: 39 y/o male here with diffuse rash with itching just [employer] after eating food containing nuts. Has known allergy to nuts. No throat tightness. No shortness of breath. No other complaints. ROS: All negative except as documented in HPI. Physical Exam: General: Alert and oriented. No acute distress when remaining still. Eyes: Conjunctivae and lids clear. ENT: No nasal congestion. Patent airway. Pharynx normal. TM normal bilaterally. No signs of angioedema. Neck: Supple. Heart: RRR. Lungs: No respiratory distress. Good air movement. No rhonchi, wheezing, rales. Abdomen: Soft and nontender. Skin: Warm and dry. Diffuse hives noted. Neuro: Alert and oriented X 3. At this point, diagnoses include: Allergic Reaction Treatment here included: Banadryl 50 mg PO Pepcid 40 mg PO Prednisone 60 mg PO Significant proven noted. Recommended outpatient treatment. Based on my best medical judgment, made decision no further evaluation or treatment indicated at this time. Patient understands and agrees to the discharge instructions customized and printed, see below. Discharge instructions from Dr. Hallman: 1. You were treated today for allergic reaction. Avoid all nut products in the future. 2. To help prevent the reaction going into your airways and your throat, take prednisone as prescribed. 3. And take Benadryl 50 mg every 6-8 hours today and tomorrow then as needed. 4. Increase oral fluid and maintain clear urine.? If dark or yellow, increase oral fluid.? This will help eliminate any allergens in your blood system. 5. EpiPen as needed. 6. See your private doctor on 06/06/2025 if not completely better. 7. Seek immediate medical care with worsening, breathing difficulty, or with any concerns. Ryan Hallman MD Patient data External records reviewed:: [facility] previous records (Reviewed prior ED records from 03/08/25. Patient was seen for Bleeding from varicose vein.) Clinical information provided by:: patient Social determinants that could affect healthcare access:: none Patient has the following chronic illnesses:: Seizures, MS How is presenting disease/condition affected by chronic disease/condition?: exacerbated by Evaluation data The following diagnostics were reviewed and interpreted by me:: other (specify) (N/A) Lab and/or radiology exams considered but not ordered:: None Interpretation Summary: None Medications / Prescriptions Medications or Prescriptions considered but not ordered:: None Medication administrations:: Medication Administration History Discontinued Medications Diphenhydramine HCl (Diphenhydramine 25 Mg Capsule) 50 mg PO X1 ONE Stop: 06/04/25 19:47 Last Admin: 06/04/25 20:09 Dose: 50 mg Documented By: DARCY Famotidine (Famotidine 20 Mg Tablet) 40 mg PO X1 ONE Stop: 06/04/25 19:47 Last Admin: 06/04/25 20:10 Dose: 40 mg Documented By: DARCY Prednisone (Prednisone 20 Mg Tablet) 60 mg PO X1 ONE Stop: 06/04/25 19:47 Last Admin: 06/04/25 20:10 Dose: 60 mg Documented By: DARCY Banadryl 50 mg PO Pepcid 40 mg PO Prednisone 60 mg PO Consultations Consultation(s) initiated? (list below): No Diagnosis Differential Diagnosis allergic reaction: anaphylaxis, allergic reaction, angioedema, contact dermatitis, viral enanthem and urticaria Most likely diagnosis given after review of the tests above:: Allergic Reaction Admission Indicated Admission indicated?: not indicated Explain why admission is indicated or not indicated:: With significant improvement and no condition needing emergent intervention, there was no indication for admission. Admission Request Was there a request for admission?: No Disposition Plan Disposition Plan: Discharge Discharge Attestation Discharge Attestation: The patient and all family members were given an opportunity to ask questions and understood the discharge instructions. Discharge instructions specifically effects, indications for sooner follow up or return to the emergency department, and the expected course of current diagnosis. Patient condition: Stable Discharge Plan Plan Patient Disposition: HOME (Self Care) Prescriptions/Referrals Prescriptions/Med Rec: New prednisone 50 mg tablet 50 mg PO BID 2 Days Qty: 4 0RF epinephrine [EpiPen] 0.3 mg/0.3 mL auto-injector 0.3 ml subcut .once PRN (Reason: hypersensitivity reaction) Qty: 2 0RF No Action levetiracetam [Keppra] 500 mg Tablet 500 mg PO QID ibuprofen 800 mg tablet 800 mg PO TID PRN (Reason: pain) Qty: 30 0RF acetaminophen 500 mg capsule 1,000 mg PO Q8HR PRN (Reason: pain) Qty: 60 0RF ibuprofen 600 mg tablet 600 mg PO Q6H Qty: 30 0RF hydrocodone-acetaminophen 5-325 mg tablet 1 tab PO BID MDD 10 PRN (Reason: pain) Qty: 10 0RF acetaminophen-codeine 300-30 mg tablet 2 tab PO TID MDD 6 PRN (Reason: pain) Qty: 20 0RF ibuprofen 800 mg tablet 800 mg PO Q8H PRN (Reason: pain) Qty: 30 0RF amoxicillin-pot clavulanate 875-125 mg tablet 1 tab PO BID Qty: 10 0RF ibuprofen 800 mg tablet 800 mg PO Q6H PRN (Reason: pain) Qty: 14 0RF Cortisporin-TC 3.3-3-10-0.5 mg/mL drops,suspension 4 drp otic (ear) QID Qty: 10 0RF fexofenadine [Nasreen Allergy] 180 mg tablet 180 mg PO Q24H Qty: 30 0RF cephalexin 500 mg capsule 500 mg PO Q8H Qty: 30 0RF mupirocin 2 % ointment 1 applic topical TID Qty: 22 0RF Referrals: [place] PA-C [Primary Care Provider, Family Practice] - In 1 week Problem List Clinical Impression: Allergic reaction Patient/Caregiver Discharge Instructions Discharge Activity: activity as tolerated Education Materials: ED Food Allergy Additional Instructions: Discharge instructions from Dr. Hallman: 1. You were treated today for allergic reaction. Avoid all nut products in the future. 2. To help prevent the reaction going into your airways and your throat, take prednisone as prescribed. 3. And take Benadryl 50 mg every 6-8 hours today and tomorrow then as needed. 4. Increase oral fluid and maintain clear urine.? If dark or yellow, increase oral fluid.? This will help eliminate any allergens in your blood system. 5. EpiPen as needed. 6. See your private doctor on 06/06/2025 if not completely better. 7. Seek immediate medical care with worsening, breathing difficulty, or with any concerns. Print Language: Irish Stand Alone Forms: Camilla Award Info., Patient Portal Info Letter
[2025-06-04] MEDS: FAMOTIDINE 20 MG TABLET 40 MG PO (20:10)
[2025-06-04 21:23] VITALS: RESP 18
== END 2025-06-04 21:23 | disposition home or self-care (01) ==
PROVIDERS: Emergency Provider Emergency Medicine; PCP Physician Assistant
DX: T78.19XA Other adverse food reactions, not elsewhere classified, initial encounter (principal); R21 Rash and other nonspecific skin eruption
CPT/HCPCS: 99281; J7512; A9270